=== PATIENT | male | born 1935 | race Caucasian/White ===

== ENCOUNTER 2016-03-23 14:38 | Emergency (ER) | payer BC ==
[~2016-03-23] VITALS: Ht 182.9 cm; Wt 95.5 kg
[~2016-03-23 14:38] MED LIST: ALFU10TA2 PO; ASPI-110 PO; ATOR10TA15 PO; BACT800T5 PO; FINA5TAB2 PO; OXYB15TA PO; WARF-21 PO
[2016-03-23 14:48] VITALS: BP 121/77; PULSE 83; RESP 16; TEMP 98.2; O2SAT 96
[2016-03-23] MEDS ORDERED: TETANUS/DIPHTHERIA TOXOID ADULT 0.5 ML VIAL IM ONE (15:15)
[2016-03-23] MEDS ORDERED: NEOMYCIN/POLYMYXIN/BACITRACIN OINT 15 GM TUBE TOPICAL ONE (15:15)
[2016-03-23] MEDS ORDERED: ULTR50TA5 PO (15:24)
--- NOTE | 2016-03-23 15:24 | PD ---
HPI . Facial laceration Chief Complaint: Fall Time Seen by Provider: 14:54 Travel History International Travel<30 days: No Contact w/Intl Traveler<30days: No Traveled to known affect area: No History of Present Illness HPI Patient presents for evaluation of injury sustained in a fall. He states that he tripped and fell. He denies loss of consciousness. He denies any signs or symptoms of a head injury. He is complaining with a cut on the left cheek and abrasions on the left elbow and both knees. He states that he is able to move all extremities without difficulty and he is able to walk without difficulty. Does not know the date of his last tetanus shot. 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) High Cholesterol: Yes Chemotherapy: No Chest Pain: No Congestive Heart Failure: No Diabetes: No Diminished Hearing: No Deep Vein Thrombosis: Yes Endocrine: No Gastrointestinal Disorders: Yes (DIVERTICULITIS, COLON RESECTION) GERD: No Genitourinary: No Hepatitis: No Hiatal Hernia: No Hypertension: Yes Immune Disorder: No Implanted Vascular Access Dvce: Yes Musculoskeletal: No Neurologic: No Psychiatric: No Reproductive: No Respiratory: No Radiation Therapy: No Ulcer: No Past Surgical History Abdominal Surgery: Yes (gallbladder removed, collectomy) Appendectomy: Yes Body Medical Devices: MESH IN ABD Cardiac Surgery: No Cholecystectomy: Yes Ear Surgery: No Endocrine Surgery: No Eye Surgery: No Genitourinary Surgery: No Gynecologic Surgery: No Oral Surgery: No Thoracic Surgery: No Tonsillectomy: Yes Other Surgery: Yes Social History Alcohol Use: No Tobacco Use: No (QUIT IN ) Substance Use: No Allergies-Medications (Allergen,Severity, Reaction): Coded Allergies: No Known Allergies (Verified , 03/23/16) Reported Meds & Prescriptions Reported Meds & Active Scripts Active Reported Bactrim DS (Sulfamethoxazole-Trimethoprim) 800-160 Mg Tab 1 Tab PO DAILY Aspirin 81 (Aspirin) 81 Mg Tabdr 81 Mg PO DAILY Atorvastatin (Atorvastatin Calcium) 10 Mg Tab 10 Mg PO HS Oxybutynin ER 24 HR (Oxybutynin Chloride) 15 Mg Tab 15 Mg PO DAILY Alfuzosin ER 24 HR 10 Mg Tab 5 Mg PO DAILY Finasteride 5 Mg Tab 5 Mg PO DAILY Do not crush. Warfarin 7.5 Mg Tab 7.5 Mg PO DAILY Review of Systems Except as stated in HPI: all other systems reviewed are Neg HENT: No: Headaches, Lightheadedness, Neck Pain Cardiovascular: No: Syncope Skin: Positive Other (abrasions and lacerations) Physical Exam Narrative GENERAL: This is a healthy-appearing 80-year-old man. SKIN: Warm and dry. Superficial abrasions on the left elbow and both knees. 2 small lacerations on the left cheek. HEAD: Contusion of the left eyebrow. Normocephalic. EYES: Pupils equal and round. ENT: No nasal bleeding or discharge. Mucous membranes pink and moist. NECK: Trachea midline. Neck is supple with full range of motion. CARDIOVASCULAR: Regular rate and rhythm. RESPIRATORY: No accessory muscle use. GASTROINTESTINAL: Abdomen soft, non-tender, nondistended. MUSCULOSKELETAL: No obvious deformities. No edema. He moves all 4 extremities equally and is able to bear weight. NEUROLOGICAL: Awake and alert. No obvious cranial nerve deficits. Motor grossly within normal limits. Normal speech. PSYCHIATRIC: Appropriate mood and affect; insight and judgment normal. Data Data Last Documented VS Vital Signs Date Time Temp Pulse Resp B/P Pulse Ox O2 Delivery O2 Flow Rate FiO2 03/23/16 14:48 98.2 83 16 121/77 96 Orders Tetanus/Diphtheria Tox Adult (Tetanus/Di (03/23/16 15:15) ^ Wound Care (03/23/16 15:01) Nfgfvxor-Utjsn-Iwebisjtxl Oint (Neospori (03/23/16 15:15) MDM Medical Decision Making Medical Screen Exam Complete: Yes Emergency Medical Condition: Yes Differential Diagnosis Differential diagnosis includes but is not limited to skin laceration, muscular laceration, tendon laceration, neurovascular laceration. Narrative Course Patient presents for treatment of wounds sustained in a fall. As no evidence of fracture. He has no evidence of head injury. Procedures Procedure Narrative LACERATION X 2 LOCATION: Left cheek LENGTH: 1 laceration was 0.5 cm long and the second laceration was 1 cm long NUMBER OF STITCHES/BRITTANY: 0 REPAIR: The wound was cleaned with sterile saline. The wound was closed using Dermabond. Patient tolerated the procedure well. Diagnosis Primary Impression: Laceration of left cheek Qualified Code: S01.412A - Laceration of left cheek, initial encounter Additional Impression: Multiple abrasions Additional Instructions: Keep the left cheek as clean and dry as possible. Do not use any antibiotic ointment on your cheek. Wash the abrasions on her elbow and knees twice daily with soap and water and then apply antibiotic ointment. Scripts Tramadol (Ultram)50 Mg Tab50 Mg PO Q4H PRN (PAIN) #12 TAB Ref 0 Prov:Maddy Murguia MD 03/23/16 Disposition: 01 DISCHARGE HOME Condition: Stable Maddy Murguia MD Mar 23, 2016 15:24
== END 2016-03-23 15:55 | disposition home or self-care (01) ==
LOC: PHED 14:38
DX: S01.412A Laceration without foreign body of left cheek and temporomandibular area, initial encounter (principal); S50.312A Abrasion of left elbow, initial encounter; I10 Essential (primary) hypertension; Z79.01 Long term (current) use of anticoagulants; E78.00 Pure hypercholesterolemia, unspecified; W01.0XXA Fall on same level from slipping, tripping and stumbling without subsequent striking against object, initial encounter; Y93.9 Activity, unspecified; Y92.9 Unspecified place or not applicable; Y99.9 Unspecified external cause status
CPT/HCPCS: 12011; 90471; 90714

== ENCOUNTER 2016-06-14 10:34 | Emergency (ER) | payer BC ==
[~2016-06-14] VITALS: Ht 182.9 cm; Wt 93.0 kg
[~2016-06-14 10:34] MED LIST changes: +ULTR50TA5 PO
[2016-06-14 10:45] VITALS: BP 121/78; PULSE 84; RESP 18; TEMP 98.7; O2SAT 96
[2016-06-14 10:57] VITALS: O2SAT 97
[2016-06-14] MEDS ORDERED: SODIUM CHLORIDE 0.9% FLUSH 10 ML FLUSH IVF PRN (11:00)
--- NOTE | 2016-06-14 11:02 | PD ---
HPI Chief Complaint: syncope Time Seen by Provider: 10:44 Travel History International Travel<30 days: No Contact w/Intl Traveler<30days: No Traveled to known affect area: No History of Present Illness HPI I this patient was having problems with lightheadedness this morning. He did not have any chest pain or palpitations. No headaches. He went to a meeting and during the meeting the lightheadedness worsened and he had a syncopal episode. He passed out and fell over and struck the left brow. He does complain of headache. No neck symptoms. Headache is mild and not a distracting injury. He does take Coumadin however. Patient has a pacemaker placed. He's never had a problem with syncope in the last 15 years. No alleviating factors. Duration of symptoms is one day. Symptoms severity was moderate. He is not lightheaded now 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) High Cholesterol: Yes Chemotherapy: No Chest Pain: No Congestive Heart Failure: No Diabetes: No Diminished Hearing: No Deep Vein Thrombosis: Yes Endocrine: No Gastrointestinal Disorders: Yes (DIVERTICULITIS, COLON RESECTION) GERD: No Genitourinary: No Hepatitis: No Hiatal Hernia: No Hypertension: Yes Immune Disorder: No Implanted Vascular Access Dvce: No Musculoskeletal: No Neurologic: No Psychiatric: No Reproductive: No Respiratory: No Radiation Therapy: No Ulcer: No Past Surgical History Abdominal Surgery: Yes (gallbladder removed, collectomy) Appendectomy: Yes Body Medical Devices: MESH IN ABD Cardiac Surgery: No Cholecystectomy: Yes Ear Surgery: No Endocrine Surgery: No Eye Surgery: No Genitourinary Surgery: No Gynecologic Surgery: No Neurologic Surgery: No Oral Surgery: No Thoracic Surgery: No Tonsillectomy: Yes Other Surgery: Yes Social History Alcohol Use: No Tobacco Use: No (QUIT IN ) Substance Use: No Allergies-Medications (Allergen,Severity, Reaction): Coded Allergies: No Known Allergies (Verified , 03/23/16) Reported Meds & Prescriptions Reported Meds & Active Scripts Active Ultram (Tramadol HCl) 50 Mg Tab 50 Mg PO Q4H PRN Reported Bactrim DS (Sulfamethoxazole-Trimethoprim) 800-160 Mg Tab 1 Tab PO DAILY Aspirin 81 (Aspirin) 81 Mg Tabdr 81 Mg PO DAILY Atorvastatin (Atorvastatin Calcium) 10 Mg Tab 10 Mg PO HS Oxybutynin ER 24 HR (Oxybutynin Chloride) 15 Mg Tab 15 Mg PO DAILY Alfuzosin ER 24 HR 10 Mg Tab 5 Mg PO DAILY Finasteride 5 Mg Tab 5 Mg PO DAILY Do not crush. Warfarin 7.5 Mg Tab 7.5 Mg PO DAILY Review of Systems General / Constitutional: No: Fever Eyes: No: Visual changes HENT: Positive: Headaches, Lightheadedness Cardiovascular: Positive: Syncope, No: Chest Pain or Discomfort Respiratory: No: Shortness of Breath Gastrointestinal: No: Abdominal Pain Genitourinary: No: Dysuria Musculoskeletal: No: Pain Skin: No Rash Neurologic: Positive: Dizziness, Syncope, Headache, No: Weakness Psychiatric: No: Depression Endocrine: No: Polydipsia Hematologic/Lymphatic: No: Easy Bruising Physical Exam Narrative GENERAL: Well-nourished, well-developed patient in no apparent distress. SKIN: Focused skin assessment reveals no rash and nodules. Skin is Warm and dry. HEAD: Has a 1.5 cm brow laceration on the left. Normocephalic. EYES: Pupils equal and round. No scleral icterus. No injection or drainage. ENT: No nasal bleeding or discharge. Mucous membranes pink and moist. NECK: Trachea midline. No JVD. No midline tenderness CARDIOVASCULAR: Regular rate and rhythm. No murmur appreciated. RESPIRATORY: No accessory muscle use. Clear to auscultation. Breath sounds equal bilaterally. GASTROINTESTINAL: Abdomen soft, non-tender, nondistended. Hepatic and splenic margins not palpable. MUSCULOSKELETAL: No obvious deformities. No clubbing. No cyanosis. No edema. NEUROLOGICAL: Awake and alert. No obvious cranial nerve deficits. Motor grossly within normal limits. Normal speech. PSYCHIATRIC: Appropriate mood and affect; insight and judgment normal. Data Data Last Documented VS Vital Signs Date Time Temp Pulse Resp B/P Pulse Ox O2 Delivery O2 Flow Rate FiO2 06/14/16 10:57 97 Room Air 06/14/16 10:57 86 18 06/14/16 10:45 98.7 121/78 Orders Electrocardiogram (06/14/16 10:52) Basic Metabolic Panel (Bmp) (06/14/16 10:52) Complete Blood Count With Diff (06/14/16 10:52) Prothrombin Time / Inr (Pt) (06/14/16 10:52) Ct Brain W/O Iv Contrast(Rout) (06/14/16 10:52) Ecg Monitoring (06/14/16 10:52) Iv Access Insert/Monitor (06/14/16 10:52) Oximetry (06/14/16 10:52) Sodium Chloride 0.9% Flush (Ns Flush) (06/14/16 11:00) Lidocai-Epi 1%-1:100,000 Inj (Xylocaine- (06/14/16 11:30) Lidocai-Epi 1%-1:100,000 Inj (Xylocaine- (06/14/16 11:30) Labs Laboratory Tests Test 06/14/16 11:00 White Blood Count 7.8 TH/MM3 Red Blood Count 4.11 MIL/MM3 Hemoglobin 12.6 GM/DL Hematocrit 37.1 % Mean Corpuscular Volume 90.2 FL Mean Corpuscular Hemoglobin 30.6 PG Mean Corpuscular Hemoglobin 33.9 % Concent Red Cell Distribution Width 15.8 % Platelet Count 153 TH/MM3 Mean Platelet Volume 9.3 FL Neutrophils (%) (Auto) 77.7 % Lymphocytes (%) (Auto) 12.5 % Monocytes (%) (Auto) 8.2 % Eosinophils (%) (Auto) 0.8 % Basophils (%) (Auto) 0.8 % Neutrophils # (Auto) 6.1 TH/MM3 Lymphocytes # (Auto) 1.0 TH/MM3 Monocytes # (Auto) 0.6 TH/MM3 Eosinophils # (Auto) 0.1 TH/MM3 Basophils # (Auto) 0.1 TH/MM3 CBC Comment DIFF FINAL Differential Comment Prothrombin Time 29.6 SEC Prothromb Time International 2.6 RATIO Ratio Sodium Level 136 MEQ/L Potassium Level 4.4 MEQ/L Chloride Level 101 MEQ/L Carbon Dioxide Level 25.7 MEQ/L Anion Gap 9 MEQ/L Blood Urea Nitrogen 25 MG/DL Creatinine 2.28 MG/DL Estimat Glomerular Filtration 28 ML/MIN Rate Random Glucose 88 MG/DL Calcium Level 9.0 MG/DL MDM Medical Decision Making Medical Screen Exam Complete: Yes Emergency Medical Condition: Yes Medical Record Reviewed: Yes Differential Diagnosis Cardiac arrhythmia, pacemaker failure, vasovagal episode Narrative Course I have reviewed the patient's electronic medical record. Patient was seen in the ER for laceration March 2016 IV placed CBC is normal Metabolic profile shows chronic renal insufficiency with creatinine of 2.2 INR on Coumadin is 2.[address] done given his head injury with headache on Coumadin. Brain CT is negative for acute process He is neurologically intact C-spine cleared clinically I reviewed his EKG which shows a paced rhythm at 80 without ectopy Extended cardiac monitoring shows paced rhythm at 80 without ectopy [employer] has been called in to interrogate the pacer to evaluate for cardiac arrhythmia or pacer failure. At this time ER workup does not reveal any cause of syncope. Awaiting [employer] rep to interrogate the pacer. I reviewed in detail with the [employer] rep. Pacer is working fine and there is no dangerous arrhythmias noted. Patient's been here for several hours and is feeling fine. He's been up and walking to the bathroom and back without lightheadedness. He wants to go home now and is stable for outpatient follow-up. Procedures Procedure Narrative LACERATION LOCATION: Left brow LENGTH: 1.5 cm NUMBER OF STITCHES/BRITTANY: 3 REPAIR: The area of the laceration was prepped with Betadine and sterilely draped. The laceration was infiltrated with 3 cc of lidocaine with 1% epinephrine. The wound was copiously irrigated and explored without evidence of foreign body, tendon injury or neurovascular injury. The wound was closed using 4 -0 Ethilon. This was a single layer repair. A sterile dressing was applied. The patient was advised to keep the dressing clean and dry. Patient tolerated the procedure well. Diagnosis Primary Impression: Syncope Qualified Code: R55 - Syncope, unspecified syncope type Additional Impressions: Head injury due to trauma Qualified Code: S09.90XA - Head injury due to trauma, initial encounter Laceration of brow without complication Qualified Code: S01.81XA - Laceration of brow without complication, initial encounter Segundo Han MD Jun 14, 2016 11:02
[2016-06-14 11:14] LABS: AUTOMATED NEUTROPHIL # 6.1 TH/MM3 (1.8-7.7); BASOPHIL # 0.1 TH/MM3 (0-0.2); BASOPHIL % 0.8 % (0.0-2.0); EOSINOPHIL # 0.1 TH/MM3 (0-0.4); EOSINOPHIL % 0.8 % (0.0-4.0); HEMATOCRIT 37.1 % (39.0-51.0); HEMO FLAGS DIFF FINAL; LYMPH % 12.5 % (9.0-44.0); MEAN CELL VOLUME 90.2 FL (80.0-100.0); MEAN CORPUSCULAR HEMOGLOBIN 30.6 PG (27.0-34.0); MEAN CORPUSCULAR HGB CONC 33.9 % (32.0-36.0); MONO % 8.2 % (0.0-8.0); NEUT % 77.7 % (16.0-70.0); PLATELET COUNT 153 TH/MM3 (150-450); RED BLOOD COUNT 4.11 MIL/MM3 (4.50-5.90); RED CELL DISTRIBUTION WIDTH 15.8 % (11.6-17.2); WHITE BLOOD COUNT 7.8 TH/MM3 (4.0-11.0)
[2016-06-14 11:22] LABS: INTERNATIONAL NORMALIZED RATIO 2.6 RATIO; PROTHROMBIN TIME - PATIENT 29.6 SEC (9.8-11.6)
[2016-06-14] MEDS ORDERED: LIDOCAINE 1%/EPINEPHrine 1:100,000 SOLN 20 ML VIAL INFIL ONE ×2 (11:30)
[2016-06-14 11:34] LABS: BICARBONATE 25.7 MEQ/L (21.0-32.0); POTASSIUM 4.4 MEQ/L (3.5-5.1)
[2016-06-14 12:47] VITALS: BP 134/69; PULSE 81; RESP 18; O2SAT 98
--- NOTE | 2016-06-14 13:03 | RADRPT ---
EXAM DATE/TIME: 06/14/2016 12:22 [facility] COMPARISON: CT BRAIN W/O CONTRAST, February 12, 2015, 0:26. INDICATIONS : Syncopal episode today with loss of consciousness, laceration to left forehead. RADIATION DOSE: 51.27 CTDIvol (mGy) MEDICAL HISTORY : Hypertension. Cardiovascular disease SURGICAL HISTORY : Appendectomy. ENCOUNTER: Initial ACUITY: 1 day PAIN SCALE: 3/10 LOCATION: Left forehead TECHNIQUE: Multiple contiguous axial images were obtained of the head. Using automated exposure control and adj ustment of the mA and/or kV according to patient size, radiation dose was kept as low as reasonably a chievable to obtain optimal diagnostic quality images. FINDINGS: CEREBRUM: The ventricles are normal for age. No evidence of midline shift, mass lesion, hemorrhage or acute in farction. No extra-axial fluid collections are seen. POSTERIOR FOSSA: The cerebellum and brainstem are intact. The 4th ventricle is midline. The cerebellopontine angle i s unremarkable. EXTRACRANIAL: The visualized portion of the orbits is intact. SKULL: The calvaria is intact. No evidence of skull fracture. CONCLUSION: Negative for acute process. Jose F Hall MD FACR on June 14, 2016 at 12:57 Board Certified Radiologist. This report was verified electronically.
[2016-06-14 14:46] VITALS: BP 136/72; PULSE 68; RESP 18; O2SAT 98
--- NOTE | 2016-06-15 10:41 | EKG ---
Date Performed: 06/14/2016 Time Performed: 11:17:34 PTAGE: 80 years EKG: ELECTRONIC ATRIAL PACEMAKER ELECTRONIC VENTRICULAR PACEMAKER ABNORMAL RHYTHM ECG Compared t o prior tracing no significant change PREVIOUS TRACING : 01/23/2016 04.24 DOCTOR: Clemencia Aranda Interpretating Date/Time 06/15/2016 10:35:24
== END 2016-06-14 15:38 | disposition home or self-care (01) ==
LOC: NEPA 10:34
DX: R55 Syncope and collapse (principal); S09.90XA Unspecified injury of head, initial encounter; S01.81XA Laceration without foreign body of other part of head, initial encounter; R94.31 Abnormal electrocardiogram [ECG] [EKG]; I10 Essential (primary) hypertension; W01.10XA Fall on same level from slipping, tripping and stumbling with subsequent striking against unspecified object, initial encounter; Z79.01 Long term (current) use of anticoagulants
CPT/HCPCS: 12011; 70450; 80048; 85025; 85610; 93005

== ENCOUNTER 2017-02-20 03:56 | Observation (INO) | payer BC ==
[~2017-02-20] VITALS: Ht 182.9 cm; Wt 93.3 kg
[2017-02-20] VITALS (15 sets, daily range): BP systolic 98–148; BP diastolic 55–78; PULSE 59–94; RESP 16–20; TEMP 97.8–99; O2SAT 95–97
[~2017-02-20 03:56] MED LIST changes: -ASPI-110 PO; +ASPI1TAB57 PO; +TRAM50 PO; -ULTR50TA5 PO
[2017-02-20] MEDS ORDERED: SODIUM CHLORIDE 0.9% FLUSH 10 ML FLUSH IVF PRN (04:15)
--- NOTE | 2017-02-20 04:23 | PD ---
HPI Chief Complaint: Neuro Symptoms/ Deficits Time Seen by Provider: 04:15 Travel History International Travel<30 days: No Contact w/Intl Traveler<30days: No Traveled to known affect area: No History of Present Illness HPI 81-year-old male presents to the emergency department by EMS transport from home for evaluation of generalized weakness and mild confusion that was witnessed by his just prior to arrival to the emergency department. Patient has past history significant for pacemaker placement for heart block, warfarin anticoagulation for DVT, hypertension, dyslipidemia, arthritis and recent diagnosis of urinary tract infection on oral antibiotic. Patient reports that Tuesday he had his pacemaker interrogated and it was fine. Patient states she is not sure why he is here at the hospital. Patient's is reportedly en route to the hospital. Patient here denies headache confusion visual disturbance difficulty with speech difficulty swallowing upper or lower extremity numbness tingling or weakness denies balance disturbance; patient also denies chest pain palpitations sweats nausea vomiting abdominal pain back pain diarrhea urinary symptoms joint pain or swelling. [employer] report indicates patient was hypotensive upon their arrival with a systolic pressure of 80-88 mmHg patient was administered a bolus of normal saline with blood pressure into normal range at time of delivery to the hospital. Patient's blood sugar was 122. PFSH Past Medical History Narrative Medical Hypertension dyslipidemia DVT TIA arthritis heart block gi bleed; Cholecystectomy appendectomy right hemicolectomy pacemaker placement; no tobacco use; nursing notes reviewed Hx Anticoagulant Therapy: Yes (COUMADIN, ASPIRIN ) Arthritis: Yes (ARMS) Autoimmune Disease: No Blood Disorders: No Cancer: No Cardiovascular Problems: Yes (pacemaker 01/2016) High Cholesterol: Yes Chemotherapy: No Chest Pain: No Congestive Heart Failure: No Diabetes: No Diminished Hearing: No Deep Vein Thrombosis: Yes Endocrine: No Gastrointestinal Disorders: Yes (DIVERTICULITIS, COLON RESECTION) GERD: No Genitourinary: No Hepatitis: No Hiatal Hernia: No Hypertension: Yes Immune Disorder: No Implanted Vascular Access Dvce: No Musculoskeletal: No Neurologic: No Psychiatric: No Reproductive: No Respiratory: No Radiation Therapy: No Ulcer: No Past Surgical History Abdominal Surgery: Yes (gallbladder removed, collectomy) Appendectomy: Yes Body Medical Devices: MESH IN ABD Cardiac Surgery: No Cholecystectomy: Yes Ear Surgery: No Endocrine Surgery: No Eye Surgery: No Genitourinary Surgery: Yes (TURP) Gynecologic Surgery: No Neurologic Surgery: No Oral Surgery: No Thoracic Surgery: No Tonsillectomy: Yes Other Surgery: Yes Social History Alcohol Use: No Tobacco Use: No (QUIT IN ) Substance Use: No Allergies-Medications (Allergen,Severity, Reaction): Coded Allergies: No Known Allergies (Verified , 03/23/16) Reported Meds & Prescriptions Reported Meds & Active Scripts Active Ultram (Tramadol HCl) 50 Mg Tab 50 Mg PO Q4H PRN Reported [antiobiotic] PO BID Aspirin 81 (Aspirin) 81 Mg Tabdr 81 Mg PO DAILY Atorvastatin (Atorvastatin Calcium) 10 Mg Tab 10 Mg PO HS Oxybutynin ER 24 HR (Oxybutynin Chloride) 15 Mg Tab 15 Mg PO DAILY Alfuzosin ER 24 HR 10 Mg Tab 5 Mg PO DAILY Finasteride 5 Mg Tab 5 Mg PO DAILY Do not crush. Warfarin 7.5 Mg Tab 7.5 Mg PO DAILY Review of Systems Except as stated in HPI: all other systems reviewed are Neg General / Constitutional: No: Fever Eyes: No: Visual changes HENT: No: Headaches, Lightheadedness Cardiovascular: No: Chest Pain or Discomfort, Palpitations, Syncope Respiratory: No: Shortness of Breath Gastrointestinal: No: Nausea, Vomiting, Abdominal Pain Genitourinary: No: Dysuria, Flank Pain Musculoskeletal: No: Myalgias, Arthralgias Skin: No Rash Neurologic: Positive: Weakness, No: Syncope, Change in Mentation, Paresthesia Psychiatric: No: Anxiety Hematologic/Lymphatic: No: Easy Bruising Physical Exam Narrative GENERAL: Well-developed well-nourished male in no acute distress no respiratory distress; GCS 15 SKIN: Warm and dry. HEAD: Atraumatic. Normocephalic. EYES: Pupils equal and round. No scleral icterus. No injection or drainage. ENT: No nasal bleeding or discharge. Mucous membranes pink and moist. NECK: Trachea midline. No JVD. CARDIOVASCULAR: Regular rate and rhythm. RESPIRATORY: No accessory muscle use. Clear to auscultation. Breath sounds equal bilaterally. GASTROINTESTINAL: Abdomen soft, non-tender, nondistended. Hepatic and splenic margins not palpable. MUSCULOSKELETAL: Extremities without clubbing, cyanosis, or edema. No obvious deformities. NEUROLOGICAL: Awake and alert. GCS 15. No obvious cranial nerve deficits. Motor grossly within normal limits. Five out of 5 muscle strength in the arms and legs. No pronator drift. No limb ataxia. Normal speech. PSYCHIATRIC: Appropriate mood and affect; insight and judgment normal. Data Data Last Documented VS Vital Signs Date Time Temp Pulse Resp B/P (MAP) Pulse Ox O2 Delivery O2 Flow Rate FiO2 02/20/17 05:58 59 20 106/64 (78) 95 Room Air 02/20/17 04:04 99.0 Orders Orders Electrocardiogram (02/20/17 04:15) Complete Blood Count With Diff (02/20/17 04:15) Comprehensive Metabolic Panel (02/20/17 04:15) Magnesium (Mg) (02/20/17 04:15) Ckmb (Isoenzyme) Profile (02/20/17 04:15) Troponin I (02/20/17 04:15) Prothrombin Time / Inr (Pt) (02/20/17 04:15) Urinalysis - C+S If Indicated (02/20/17 04:15) Chest, Single Ap (02/20/17 04:15) Ct Brain W/O Iv Contrast(Rout) (02/20/17 04:15) Blood Glucose (02/20/17 04:15) Ecg Monitoring (02/20/17 04:15) Iv Access Insert/Monitor (02/20/17 04:15) Oximetry (02/20/17 04:15) Sodium Chloride 0.9% Flush (Ns Flush) (02/20/17 04:15) Sodium Chlor 0.9% 1000 Ml Inj (Ns 1000 M (02/20/17 04:30) Blood Culture (02/20/17 04:25) Lactic Acid (02/20/17 04:25) CKMB (02/20/17 04:23) CKMB% (02/20/17 04:23) Place In Observation (02/20/17 ) Vital Signs (Adult) Q4H (02/20/17 06:41) Bedside Glucose TATYANA.CSUGAR (02/20/17 06:41) Diet Heart Healthy (02/20/17 Breakfast) Sodium Chlor 0.9% 1000 Ml Inj (Ns 1000 M (02/20/17 06:41) Sodium Chloride 0.9% Flush (Ns Flush) (02/20/17 06:45) Sodium Chloride 0.9% Flush (Ns Flush) (02/20/17 09:00) Acetaminophen (Tylenol) (02/20/17 06:45) Ondansetron Inj (Zofran Inj) (02/20/17 06:45) Basic Metabolic Panel (Bmp) (02/21/17 06:00) Complete Blood Count With Diff (02/21/17 06:00) Case Management Consult (02/20/17 06:41) Heparin Inj (Heparin Inj) (02/20/17 06:45) Naloxone Inj (Narcan Inj) (02/20/17 06:45) Docusate Sodium-Senna (Agnieszka-Colace) (02/20/17 09:00) Magnesium Hydroxide Liq (Milk Of Magnesi (02/20/17 06:45) Sennosides (Senokot) (02/20/17 06:45) Bisacodyl Supp (Dulcolax Supp) (02/20/17 06:45) Lactulose Liq (Lactulose Liq) (02/20/17 06:45) Labs Laboratory Tests Test 02/20/17 04:23 02/20/17 04:57 02/20/17 06:17 White Blood Count 15.7 TH/MM3 Red Blood Count 4.37 MIL/MM3 Hemoglobin 14.4 GM/DL Hematocrit 42.2 % Mean Corpuscular Volume 96.5 FL Mean Corpuscular Hemoglobin 32.9 PG Mean Corpuscular Hemoglobin Concent 34.1 % Red Cell Distribution Width 15.4 % Platelet Count 125 TH/MM3 Mean Platelet Volume 9.9 FL Neutrophils (%) (Auto) 91.8 % Lymphocytes (%) (Auto) 1.9 % Monocytes (%) (Auto) 5.6 % Eosinophils (%) (Auto) 0.5 % Basophils (%) (Auto) 0.2 % Neutrophils # (Auto) 14.5 TH/MM3 Lymphocytes # (Auto) 0.3 TH/MM3 Monocytes # (Auto) 0.9 TH/MM3 Eosinophils # (Auto) 0.1 TH/MM3 Basophils # (Auto) 0.0 TH/MM3 CBC Comment AUTO DIFF Differential Comment AUTO DIFF CONFIRMED Platelet Estimate LOW Platelet Morphology Comment CLUMPED Prothrombin Time 22.9 SEC Prothromb Time International Ratio 2.3 RATIO Blood Urea Nitrogen 24 MG/DL Creatinine 1.56 MG/DL Random Glucose 111 MG/DL Total Protein 7.3 GM/DL Albumin 3.0 GM/DL Calcium Level 8.2 MG/DL Magnesium Level 1.8 MG/DL Alkaline Phosphatase 66 U/L Aspartate Amino Transf (AST/SGOT) 41 U/L Alanine Aminotransferase (ALT/SGPT) 26 U/L Total Bilirubin 0.9 MG/DL Sodium Level 135 MEQ/L Potassium Level 4.5 MEQ/L Chloride Level 102 MEQ/L Carbon Dioxide Level 24.0 MEQ/L Anion Gap 9 MEQ/L Estimat Glomerular Filtration Rate 43 ML/MIN Total Creatine Kinase 188 U/L Creatine Kinase MB 4.5 NG/ML Troponin I 0.03 NG/ML Lactic Acid Level 2.0 mmol/L [facility] Medical Decision Making Medical Screen Exam Complete: Yes Emergency Medical Condition: Yes Medical Record Reviewed: Yes Interpretation(s) EKG: Ventricular paced rhythm rate 60 CT brain w/o: FINDINGS: No fractures are seen. There is mild atrophy again noted. No hemorrhage, infarct , or mass. CONCLUSION: No acute disease. Arvin Foster MD on February 20, 2017 at 5:32 Board Certified Radiologist. This report was verified electronically. CXR: FINDINGS: A single view of the chest demonstrates the lungs to be symmetrically aerated without evidence of mass, infiltrate or effusion. The cardiomediastinal contours are unremarkable. Osseous structures are intact. CONCLUSION: No acute disease. Arvin Foster MD on February 20, 2017 at 5:24 Board Certified Radiologist. This report was verified electronically. Lactic: 2.0, not elevated INR: 2.3, therapeutic cbc: leukocytosis with left shift and thrombocytopenia cmp: Renal insufficiency trop I: 0.03, wnl ck: 188, wnl; mb%: 2.4%, not elevated ua: Differential Diagnosis Generalized weakness, near-syncope, arrhythmia, sepsis, hypotension, pacemaker malfunction, electrolyte disturbance, coagulopathy, anemia, ACS, TIA, CVA Narrative Course Well-developed well-nourished pleasant male in no acute distress no respiratory distress placed on monitoring analyst with continuous pulse oximetry specimens collected and sent for resulting EKG ordered along with imaging studies At 4:30 at bedside reports that she last saw him normal amounts 6:30 or 7 PM on Tuesday evening before he went to bed. Patient typically goes to bed early. states subsequently she went to bed and then she was noticing sometimes she thinks around 1 AM that he seemed to be sitting on the side of the bed and appeared to be agitated but she was sleeping so she did not really pay attention and then she was awakened around 3 AM with him still awake and she noticed that his side of the bed was wet aware he must have urinated on the bed into his depends therefore she decided to get him up to give him a shower and noticed that he was very weak and had to use her as a support to get to the shower and once he was in the shower became more weak states that she pretty minute chairs been no fall. reports of his no injury related to this episode of weakness this morning. states that he has been somewhat agile bowl and weak over the past few days and recently was started on a new antibiotic which replaced the Bactrim antibiotic that he had been on. confirms the patient on Tuesday did have his pacemaker interrogated. states here in the emergency department he seems much improved and back to his baseline. reports that she did not notice any facial droop or slurring of speech or focal weakness of the upper extremity or lower extremity and that he always has a slow gait. At home he appeared somewhat confused. Mentation has improved after 2 L of normal saline IV patient still remains with generalized weakness and blood pressure is increased to 10 7 mmHg systolic pressure. Patient does have leukocytosis with left shift renal insufficiency and within normal range CK and troponin I with therapeutic range INR; urinalysis remains pending; chest x-ray does not show lobar infiltrate effusion or heart failure cardiac silhouette is enlarged. CT brain noncontrast reveals no acute abnormality. Patient remains resting supine with O2 saturations of 96- 97% without orthopnea for complaint of shortness of breath. It is unclear as to what caused the patient to have a hypotensive episode which is most likely the explanation for his confusion; patient require further evaluation and investigation etiology of episode of hypotension with generalized weakness therefore patient's case discussed with on-call [facility] MD Dr. Hung who has graciously agreed to accept patient for observation Sepsis Criteria SIRS Criteria (2 or more): WBC > 63880, < 4000 or > 10% bands Diagnosis Primary Impression: Generalized weakness Additional Impression: Hypotension Mae Ford MD Feb 20, 2017 04:23
[2017-02-20] MEDS ORDERED: SODIUM CHLOR 0.9% 1000 ML INJ 1,000 ML IV ONE (04:30)
[2017-02-20 05:19] LABS: AUTOMATED NEUTROPHIL # 14.5 TH/MM3 (1.8-7.7); BASOPHIL % 0.2 % (0.0-2.0); EOSINOPHIL # 0.1 TH/MM3 (0-0.4); EOSINOPHIL % 0.5 % (0.0-4.0); HEMATOCRIT 42.2 % (39.0-51.0); LYMPH % 1.9 % (9.0-44.0); LYMPHOCYTE # 0.3 TH/MM3 (1.0-4.8); MEAN CELL VOLUME 96.5 FL (80.0-100.0); MEAN CORPUSCULAR HEMOGLOBIN 32.9 PG (27.0-34.0); MEAN CORPUSCULAR HGB CONC 34.1 % (32.0-36.0); MONO % 5.6 % (0.0-8.0); NEUT % 91.8 % (16.0-70.0); PLATELET COUNT 125 TH/MM3 (150-450); RED BLOOD COUNT 4.37 MIL/MM3 (4.50-5.90); RED CELL DISTRIBUTION WIDTH 15.4 % (11.6-17.2); WHITE BLOOD COUNT 15.7 TH/MM3 (4.0-11.0)
[2017-02-20 05:23] LABS: HEMO FLAGS AUTO DIFF
--- NOTE | 2017-02-20 05:25 | RADRPT ---
EXAM DATE/TIME: 02/20/2017 04:26 [facility] COMPARISON: CHEST SINGLE AP, January 22, 2016, 17:46. INDICATIONS : Palpitations. MEDICAL HISTORY : Hypertension. Cardiovascular disease. Deep venous thrombosis. SURGICAL HISTORY : Appendectomy. Pacemaker. Cholecystectomy. Colon resection. ENCOUNTER: Initial ACUITY: 1 day PAIN SCORE: 0/10 LOCATION: Bilateral chest FINDINGS: A single view of the chest demonstrates the lungs to be symmetrically aerated without evidence of mas s, infiltrate or effusion. The cardiomediastinal contours are unremarkable. Osseous structures are intact. CONCLUSION: No acute disease. Arvin Foster MD on February 20, 2017 at 5:24 Board Certified Radiologist. This report was verified electronically.
--- NOTE | 2017-02-20 05:34 | RADRPT ---
EXAM DATE/TIME: 02/20/2017 04:54 [facility] COMPARISON: CT BRAIN W/O CONTRAST, June 14, 2016, 12:22. INDICATIONS : Altered mental status. RADIATION DOSE: 56.35 CTDIvol (mGy) MEDICAL HISTORY : Cardiovascular disease. Hypertension. Deep venous thrombosis. SURGICAL HISTORY : Pacemaker. Cholecystectomy. ENCOUNTER: Initial ACUITY: 1 day PAIN SCALE: 0/10 LOCATION: neck TECHNIQUE: Multiple contiguous axial images were obtained of the head. Using automated exposure control and adj ustment of the mA and/or kV according to patient size, radiation dose was kept as low as reasonably a chievable to obtain optimal diagnostic quality images. DICOM format image data is available electro nically for review and comparison. FINDINGS: No fractures are seen. There is mild atrophy again noted. No hemorrhage, infarct, or mass. CONCLUSION: No acute disease. Arvin Foster MD on February 20, 2017 at 5:32 Board Certified Radiologist. This report was verified electronically.
[2017-02-20 05:35] LABS: INTERNATIONAL NORMALIZED RATIO 2.3 RATIO; PROTHROMBIN TIME - PATIENT 22.9 SEC (9.8-11.6)
[2017-02-20 05:54] LABS: ANION GAP 9 MEQ/L (5-15); AST (GOT) 41 U/L (15-37); BLOOD UREA NITROGEN 24 MG/DL (7-18); CHLORIDE 102 MEQ/L (98-107); GLOMERULAR FILTRATION RATE 43 ML/MIN (>89); MAGNESIUM 1.8 MG/DL (1.5-2.5); POTASSIUM 4.5 MEQ/L (3.5-5.1); SODIUM (NA) 135 MEQ/L (136-145)
[2017-02-20 06:03] LABS: ALKALINE PHOSPHATASE 66 U/L (45-117); ALT (GPT) 26 U/L (12-78); CREATINE KINASE 188 U/L (39-308); TOTAL BILIRUBIN ADULT 0.9 MG/DL (0.2-1.0)
[2017-02-20] MEDS ORDERED: antiobiotic PO (06:03)
[2017-02-20 06:13] LABS: PLATELET ESTIMATE SMEAR LOW (NORMAL); PLATELET MORPHOLOGY CLUMPED (NORMAL); SCAN/DIFF AUTO DIFF CONFIRMED
[2017-02-20 06:15] LABS: CKMB 4.5 NG/ML (0.5-3.6)
[2017-02-20] MEDS ORDERED: LACTULOSE SYRUP 20 GM/30 ML CUP PO PRN (06:45)
[2017-02-20] MEDS ORDERED: SENNOSIDES 8.6 MG TAB PO PRN (06:45)
[2017-02-20] MEDS ORDERED: ONDANSETRON HCL 4 MG/2 ML VIAL IVP PRN (06:45)
[2017-02-20] MEDS ORDERED: HEPARIN SODIUM - SQ 10,000 UNITS/ML VIAL SQ SCH (06:45)
[2017-02-20] MEDS ORDERED: BISACODYL 10 MG SUPP RECTAL PRN (06:45)
[2017-02-20] MEDS ORDERED: ACETAMINOPHEN 325 MG TAB PO PRN (06:45)
[2017-02-20] MEDS ORDERED: SODIUM CHLORIDE 0.9% FLUSH 10 ML FLUSH IV FLUSH PRN (06:45)
[2017-02-20] MEDS ORDERED: MAGNESIUM HYDROXIDE SUSP 30 ML CUP PO PRN (06:45)
[2017-02-20] MEDS ORDERED: NALOXONE HCL 0.4 MG/ML AMP IV PUSH PRN (06:45)
[2017-02-20 07:04] LABS: BLOOD, URINE NEG (NEG); COMMENT (UR) CULT NOT INDICATED; CULTURE IF INDICATED CULT NOT INDICATED; GLUCOSE,URINE NEG (NEG); KETONE, URINE NEG (NEG); MUCUS URINE FEW /lpf (OCC); NITRITE,URINE NEG (NEG); PH, URINE 5.5 (5.0-8.5); SQUAMOUS EPITHELIAL CELL URINE <1 /hpf (0-5); URINE COLOR YELLOW (YELLW/STRAW)
[2017-02-20] MEDS ORDERED: cefTRIAXone INJ 1,000 MG in SODIUM CHLORIDE 0.9% INJ 100 ML IV ONE (07:15)
[2017-02-20] MEDS: SODIUM CHLOR 0.9% 1000 ML INJ 1,000 ML IV SCH ×3 (07:42→20:22)
[2017-02-20] MEDS: DOCUSATE SODIUM 50 MG/SENNA 8.6 MG TAB PO SCH ×2 (08:39→20:22)
[2017-02-20] MEDS: SODIUM CHLORIDE 0.9% FLUSH 10 ML FLUSH IV FLUSH SCH ×2 (08:39→20:22)
--- NOTE | 2017-02-20 13:24 | EKG ---
Date Performed: 02/20/2017 Time Performed: 04:44:06 PTAGE: 81 years EKG: ELECTRONIC VENTRICULAR PACEMAKER ABNORMAL RHYTHM ECG PREVIOUS TRACING : 06/14/2016 11.17 Since prior tracing, pacing is now ventricular with no atri al spikes seen. Underlying rhythm appears to be atrial fibrillation. DOCTOR: Robert Quinonez Interpretating Date/Time 02/20/2017 13:22:45
--- NOTE | 2017-02-20 15:52 | HHI.HP ---
[facility] Richard Velazquez MD Admission Diagnosis generalized weakness w/ hypotension Diagnoses: Chief Complaint: Confusion Travel History International Travel<30 Days: No Contact w/Intl Traveler <30 Da: No Traveled to Known Affected Are: No History of Present Illness The patient is an 81-year-old male with a past medical history of DVT, BPH and diverticular disease who is presenting to the hospital with altered mental status and weakness. The patient's was at the bedside and assisted with the history as the patient was somewhat confused. The patient has been urinating a lot all week and went to the urologist a few days ago where he was started on nitrofurantoin. At around 2:30 this morning the patient was urinating a lot and was found to not be able to get up and was disoriented. The patient's called 911 because she thought he might be having a stroke. The patient is currently still a little confused. Patient's states he has had several episodes like this, starting 5 years ago. She also mentions that he has a hearing problem and balance issues. The patient denies any pain or discomfort. He is breathing comfortably. Review of Systems ROS Limitations: Clinical Condition, Poor Historian Except as stated in HPI: all other systems reviewed are Neg Past Family Social History Past Medical History Hypertension Dyslipidemia DVT TIA OA Complete heart block requiring pacemaker placement GI bleed Diverticular disease requiring hemicolectomy BPH status post TURP Chronic kidney disease Urethral stricture Venous insufficiency Past Surgical History Abdominal hernia repair Appendectomy Cholecystectomy Allergies: Coded Allergies: No Known Allergies (Verified , 03/23/16) Active Ordered Medications Current Medications Medications (Trade) Dose Ordered Sig/Benito Route Start Time Stop Time Status Last Admin Sodium Chloride 1,000 ml @ 125 mls/hr Q8H IV 02/20/17 06:41 02/20/17 07:42 (NS Flush) 2 ml UNSCH PRN IV FLUSH 02/20/17 06:45 (NS Flush) 2 ml BID IV FLUSH 02/20/17 09:00 02/20/17 08:39 (Tylenol) 650 mg Q4H PRN PO 02/20/17 06:45 (Zofran Inj) 4 mg Q6H PRN IVP 02/20/17 06:45 (Narcan Inj) 0.4 mg UNSCH PRN IV PUSH 02/20/17 06:45 (Agnieszka-Colace) 1 tab BID PO 02/20/17 09:00 02/20/17 08:39 (Milk Of Magnesia Liq) 30 ml Q12H PRN PO 02/20/17 06:45 (Senokot) 17.2 mg Q12H PRN PO 02/20/17 06:45 (Dulcolax Supp) 10 mg DAILY PRN RECTAL 02/20/17 06:45 (Lactulose Liq) 30 ml DAILY PRN PO 02/20/17 06:45 (Ecotrin Ec) 81 mg DAILY PO 02/20/17 15:45 UNV (Lipitor) 10 mg HS PO 02/20/17 21:00 UNV (Proscar) 5 mg DAILY PO 02/20/17 15:45 UNV (Coumadin) 7.5 mg DAILY PO 02/20/17 15:45 UNV Non-Formulary Medication 5 mg DAILY PO 02/20/17 15:45 UNV Non-Formulary Medication 15 mg DAILY PO 02/20/17 15:45 UNV Pharmacy Profile Note 0 ml @ 0 mls/hr UNSCH OTHER 02/20/17 15:45 UNV Family History The patient denies pertinent family history Social History The patient does not smoke or drink. Physical Exam Vital Signs Vital Signs Date Time Temp Pulse Resp B/P (MAP) Pulse Ox O2 Delivery O2 Flow Rate FiO2 02/20/17 11:39 98.0 89 18 131/78 (95) 95 02/20/17 10:14 89 02/20/17 09:53 97.8 94 18 148/65 (92) 96 02/20/17 08:26 79 18 109/63 (78) 98 02/20/17 05:58 59 20 106/64 (78) 95 Room Air 02/20/17 05:35 60 20 101/60 (74) Room Air 02/20/17 05:21 59 20 109/62 (78) 95 Room Air 02/20/17 04:56 60 20 108/58 (75) 96 Room Air 02/20/17 04:40 61 20 98/57 (71) 02/20/17 04:26 95 Room Air 02/20/17 04:04 99.0 62 20 106/55 (72) 95 Physical Exam GENERAL: Well-developed well-nourished male in no acute distress. SKIN: Warm and dry. HEAD: Atraumatic. Normocephalic. EYES: Pupils equal and round. No scleral icterus. No injection or drainage. ENT: No nasal bleeding or discharge. Mucous membranes pink and moist. NECK: Trachea midline. No JVD. CARDIOVASCULAR: Regular rate and rhythm. RESPIRATORY: No accessory muscle use. Clear to auscultation. Breath sounds equal bilaterally. GASTROINTESTINAL: Abdomen soft, non-tender, nondistended. Hepatic and splenic margins not palpable. MUSCULOSKELETAL: Extremities without clubbing, cyanosis, or edema. No obvious deformities. NEUROLOGICAL: Awake and alert. Somewhat confused. No obvious cranial nerve deficits. Motor grossly within normal limits. Five out of 5 muscle strength in the arms and legs. No pronator drift. No limb ataxia. Normal speech. PSYCHIATRIC: Slightly flattened affect. Laboratory Laboratory Tests Test 02/20/17 04:23 02/20/17 04:57 02/20/17 06:17 White Blood Count 15.7 Red Blood Count 4.37 Hemoglobin 14.4 Hematocrit 42.2 Mean Corpuscular Volume 96.5 Mean Corpuscular Hemoglobin 32.9 Mean Corpuscular Hemoglobin Concent 34.1 Red Cell Distribution Width 15.4 Platelet Count 125 Mean Platelet Volume 9.9 Neutrophils (%) (Auto) 91.8 Lymphocytes (%) (Auto) 1.9 Monocytes (%) (Auto) 5.6 Eosinophils (%) (Auto) 0.5 Basophils (%) (Auto) 0.2 Neutrophils # (Auto) 14.5 Lymphocytes # (Auto) 0.3 Monocytes # (Auto) 0.9 Eosinophils # (Auto) 0.1 Basophils # (Auto) 0.0 CBC Comment AUTO DIFF Differential Comment AUTO DIFF CONFIRMED Platelet Estimate LOW Platelet Morphology Comment CLUMPED Prothrombin Time 22.9 Prothromb Time International Ratio 2.3 Blood Urea Nitrogen 24 Creatinine 1.56 Random Glucose 111 Total Protein 7.3 Albumin 3.0 Calcium Level 8.2 Magnesium Level 1.8 Alkaline Phosphatase 66 Aspartate Amino Transf (AST/SGOT) 41 Alanine Aminotransferase (ALT/SGPT) 26 Total Bilirubin 0.9 Sodium Level 135 Potassium Level 4.5 Chloride Level 102 Carbon Dioxide Level 24.0 Anion Gap 9 Estimat Glomerular Filtration Rate 43 Total Creatine Kinase 188 Creatine Kinase MB 4.5 Troponin I 0.03 Lactic Acid Level 2.0 Urine Color YELLOW Urine Turbidity CLEAR Urine pH 5.5 Urine Specific [place] 1.016 Urine Protein TRACE Urine Glucose (UA) NEG Urine Ketones NEG Urine Occult Blood NEG Urine Nitrite NEG Urine Bilirubin NEG Urine Urobilinogen LESS THAN 2.0 Urine Leukocyte Esterase NEG Urine RBC LESS THAN 1 Urine WBC 1 Urine Squamous Epithelial Cells <1 Urine Mucus FEW Microscopic Urinalysis Comment CULT NOT INDICATED Date/Time Source Procedure Growth Status 02/20/17 04:57 Blood Peripheral Aerobic Blood Culture Pending Received 02/20/17 04:57 Blood Peripheral Anaerobic Blood Culture Pending Received Result Diagram: 02/20/1742202/20/17422 Imaging Last Impressions Head CT 02/20/17414 Signed Impressions: Service Date/Time: Monday, February 20, 2017 04:54 - CONCLUSION: No acute disease. Arvin Foster MD Chest X-Ray 02/20/17414 Signed Impressions: Service Date/Time: Monday, February 20, 2017 04:26 - CONCLUSION: No acute disease. Arvin Foster MD Caprini VTE Risk Assessment Caprini VTE Risk Assessment: Mod/High Risk (score >= 2) Caprini Risk Assessment Model Point Value = 1 Point Value = 2 Point Value = 3 Point Value = 5 Age 41-60 Minor surgery BMI > 25 kg/m2 Swollen legs Varicose veins or History of unexplained or recurrent spontaneous Oral contraceptives or hormone replacement Sepsis (< 1 month) Serious lung disease, including pneumonia (< 1 month) Abnormal pulmonary function Acute myocardial infarction Congestive heart failure (< 1 month) History of inflammatory bowel disease Medical patient at bed rest Age 61-74 Arthroscopic surgery Major open surgery (> 45 min) Laparoscopic surgery (> 45 min) Malignancy Confined to bed (> 72 hours) Immobilizing plaster cast Central venous access Age >= 75 History of VTE Family history of VTE Factor V Leiden Prothrombin 29515M Lupus anticoagulant Anticardiolipin antibodies Elevated serum homocysteine Heparin-induced thrombocytopenia Other congenital or acquired thrombophilia Stroke (< 1 month) Elective arthroplasty Hip, pelvis, or leg fracture Acute spinal cord injury (< 1 month) Prophylaxis Regimen Total Risk Factor Score Risk Level Prophylaxis Regimen 0-1 Low Early ambulation 2 Moderate Order ONE of the following: *Sequential Compression Device (SCD) *Heparin 5000 units SQ BID 3-4 Higher Order ONE of the following medications: *Heparin 5000 units SQ TID *Enoxaparin/Lovenox 40 mg SQ daily (WT < 150 kg, CrCl > 30 mL/min) *Enoxaparin/Lovenox 30 mg SQ daily (WT < 150 kg, CrCl > 10-29 mL/min) *Enoxaparin/Lovenox 30 mg SQ BID (WT < 150 kg, CrCl > 30 mL/min) AND/OR *Sequential Compression Device (SCD) 5 or more Highest Order ONE of the following medications: *Heparin 5000 units SQ TID (Preferred with Epidurals) *Enoxaparin/Lovenox 40 mg SQ daily (WT < 150 kg, CrCl > 30 mL/min) *Enoxaparin/Lovenox 30 mg SQ daily (WT < 150 kg, CrCl > 10-29 mL/min) *Enoxaparin/Lovenox 30 mg SQ BID (WT < 150 kg, CrCl > 30 mL/min) AND *Sequential Compression Device (SCD) Assessment and Plan Assessment and Plan Altered mental status/ weakness The patient has had multiple episodes of altered mental status in the past. There has been concern for dementia. CT of the head was unremarkable. The patient was recently started on nitrofurantoin and per the patient's he has acted this way with urinary tract infections in the past. - Check a vitamin B12 level, TSH and vitamin D level. - PT/OT. ST cognitive eval. - Neuro checks. - Continue nitrofurantoin. UTI/ leukocytosis The patient was recently started on Macrobid by urology. UA in the hospital was negative. Chest x-ray unremarkable. - Continue Macrobid. - Follow blood cultures. - Follow CBC. DVT The patient is chronically anticoagulated with Coumadin. INR is therapeutic. - Continue home Coumadin dose and have pharmacy assist with dosing. Chronic kidney disease Creatinine is at baseline. - Avoid nephrotoxic agents. Thrombocytopenia Chronic, not bleeding. - Follow CBC. Complete heart block Status post pacemaker placement. The patient recently had his pacemaker interrogated by cardiology and everything was said to be working normally. - Outpatient follow-up with cardiology. PPx: Coumadin Code Status Full Discussed Condition With Pt, pt's Gibson Starr Feb 20, 2017 15:52
[2017-02-20] MEDS ORDERED: WARFARIN SOD 7.5 MG TAB PO SCH (16:15)
[2017-02-20] MEDS ORDERED: ALFUZOSIN PO SCH (16:30)
[2017-02-20] MEDS ORDERED: OXYBUTININ PO SCH (16:30)
[2017-02-20] MEDS: NITROFURANTOIN MONOHYD MACROCR 100 MG CAP PO SCH (16:33)
[2017-02-20] MEDS: ASPIRIN EC 81 MG TABEC PO SCH (16:33)
[2017-02-20] MEDS: FINASTERIDE 5 MG TAB PO SCH (16:33)
[2017-02-20] MEDS ORDERED: ATORVASTATIN 10 MG TAB PO SCH (21:00)
[2017-02-21 04:00] VITALS: BP 151/70; PULSE 76; RESP 18; TEMP 98.7; O2SAT 98
[2017-02-21 04:40] LABS: AUTOMATED NEUTROPHIL # 10.9 TH/MM3 (1.8-7.7); BASOPHIL % 0.4 % (0.0-2.0); EOSINOPHIL # 0.3 TH/MM3 (0-0.4); HEMATOCRIT 37.2 % (39.0-51.0); LYMPH % 2.8 % (9.0-44.0); LYMPHOCYTE # 0.3 TH/MM3 (1.0-4.8); MEAN CELL VOLUME 97.5 FL (80.0-100.0); MEAN CORPUSCULAR HEMOGLOBIN 33.2 PG (27.0-34.0); MEAN CORPUSCULAR HGB CONC 34.1 % (32.0-36.0); MONO % 7.7 % (0.0-8.0); NEUT % 87.1 % (16.0-70.0); PLATELET COUNT 111 TH/MM3 (150-450); RED BLOOD COUNT 3.82 MIL/MM3 (4.50-5.90); RED CELL DISTRIBUTION WIDTH 15.4 % (11.6-17.2); WHITE BLOOD COUNT 12.5 TH/MM3 (4.0-11.0)
[2017-02-21 04:55] LABS: HEMO FLAGS AUTO DIFF
[2017-02-21 04:58] LABS: BICARBONATE 24.7 MEQ/L (21.0-32.0); POTASSIUM 4.2 MEQ/L (3.5-5.1)
[2017-02-21] MEDS: SODIUM CHLOR 0.9% 1000 ML INJ 1,000 ML IV SCH (06:41)
[2017-02-21 06:58] LABS: PLATELET ESTIMATE SMEAR LOW (NORMAL); PLATELET MORPHOLOGY NORMAL (NORMAL); SCAN/DIFF AUTO DIFF CONFIRMED
[2017-02-21 08:00] VITALS: PULSE 77
[2017-02-21 08:10] VITALS: BP 122/63; PULSE 70; RESP 18; TEMP 98.4; O2SAT 95
[2017-02-21] MEDS: DOCUSATE SODIUM 50 MG/SENNA 8.6 MG TAB PO SCH (08:26)
[2017-02-21] MEDS: SODIUM CHLORIDE 0.9% FLUSH 10 ML FLUSH IV FLUSH SCH (08:26)
[2017-02-21] MEDS: FINASTERIDE 5 MG TAB PO SCH (08:26)
[2017-02-21] MEDS: ASPIRIN EC 81 MG TABEC PO SCH (08:26)
[2017-02-21] MEDS: NITROFURANTOIN MONOHYD MACROCR 100 MG CAP PO SCH (08:27)
[2017-02-21] MEDS ORDERED: CHOL1000 PO (09:47)
--- NOTE | 2017-02-21 09:47 | HHI.DCPOC ---
Discharge Care Plan Diagnosis: (1) Leukocytosis (2) UTI (urinary tract infection) (3) Generalized weakness (4) Hypotension (5) Pacemaker Goals to Promote Your Health * To prevent worsening of your condition and complications * To maintain your health at the optimal level Directions to Meet Your Goals Take your medications as prescribed Follow your dietary instruction Follow activity as directed Keep your appointments as scheduled Take your immunizations and boosters as scheduled If your symptoms worsen call your PCP, if no PCP go to Urgent Care Center or Emergency Room Smoking is Dangerous to Your Health. Avoid second hand smoke Call the 24-hour hour crisis hotline for domestic abuse at Gibson Starr DO Feb 21, 2017 09:47
--- NOTE | 2017-02-21 09:53 | HHI.PR ---
Subjective Remarks The patient was resting comfortably in bed. His was at the bedside. They were anxious about going home. The patient said he had a normal bowel movement and urination this morning. He does not want to have any home services. Objective Vitals Vital Signs Date Time Temp Pulse Resp B/P (MAP) Pulse Ox O2 Delivery O2 Flow Rate FiO2 02/21/17 08:10 98.4 70 18 122/63 (82) 95 02/21/17 08:00 77 02/21/17 04:00 98.7 76 18 151/70 (97) 98 02/20/17 23:29 98.1 70 18 127/66 (86) 96 02/20/17 20:06 98.7 65 18 108/60 (76) 97 02/20/17 16:07 98.0 80 16 98/56 (70) 95 02/20/17 15:00 77 02/20/17 11:39 98.0 89 18 131/78 (95) 95 02/20/17 10:14 89 02/20/17 09:53 97.8 94 18 148/65 (92) 96 I/O 02/20/17 02/20/17 02/20/17 02/21/17 02/21/17 02/21/17 07:00 15:00 23:00 07:00 15:00 23:00 Intake Total 1000 ml 100 ml 2550 ml Output Total 1050 ml Balance 1000 ml 100 ml 1500 ml Intake Oral 750 ml IV Total 1000 ml 100 ml 1800 ml Output Urine Total 1050 ml # Voids 1 # Bowel Movements 1 Result Diagram: 02/21/17 0424 02/21/17423 Imaging Last Impressions Head CT 02/20/17414 Signed Impressions: Service Date/Time: Monday, February 20, 2017 04:54 - CONCLUSION: No acute disease. Arvin Foster MD Chest X-Ray 02/20/17414 Signed Impressions: Service Date/Time: Monday, February 20, 2017 04:26 - CONCLUSION: No acute disease. Arvin Foster MD Objective Remarks GENERAL: Well-developed well-nourished male in no acute distress. SKIN: Warm and dry. HEAD: Atraumatic. Normocephalic. EYES: Pupils equal and round. No scleral icterus. No injection or drainage. ENT: No nasal bleeding or discharge. Mucous membranes pink and moist. NECK: Trachea midline. No JVD. CARDIOVASCULAR: Regular rate and rhythm. RESPIRATORY: No accessory muscle use. Clear to auscultation. Breath sounds equal bilaterally. GASTROINTESTINAL: Abdomen soft, non-tender, nondistended. Hepatic and splenic margins not palpable. MUSCULOSKELETAL: Extremities without clubbing, cyanosis, or edema. No obvious deformities. NEUROLOGICAL: Awake and alert. Somewhat confused. No obvious cranial nerve deficits. Motor grossly within normal limits. Five out of 5 muscle strength in the arms and legs. No pronator drift. No limb ataxia. Normal speech. PSYCHIATRIC: Mood and affect appropriate. Medications and IVs Current Medications Medications (Trade) Dose Ordered Sig/Benito Route Start Time Stop Time Status Last Admin Sodium Chloride 1,000 ml @ 125 mls/hr Q8H IV 02/20/17 06:41 02/20/17 20:22 (NS Flush) 2 ml UNSCH PRN IV FLUSH 02/20/17 06:45 (NS Flush) 2 ml BID IV FLUSH 02/20/17 09:00 02/21/17 08:26 (Tylenol) 650 mg Q4H PRN PO 02/20/17 06:45 (Zofran Inj) 4 mg Q6H PRN IVP 02/20/17 06:45 (Narcan Inj) 0.4 mg UNSCH PRN IV PUSH 02/20/17 06:45 (Agnieszka-Colace) 1 tab BID PO 02/20/17 09:00 02/21/17 08:26 (Milk Of Magnesia Liq) 30 ml Q12H PRN PO 02/20/17 06:45 (Senokot) 17.2 mg Q12H PRN PO 02/20/17 06:45 (Dulcolax Supp) 10 mg DAILY PRN RECTAL 02/20/17 06:45 (Lactulose Liq) 30 ml DAILY PRN PO 02/20/17 06:45 (Ecotrin Ec) 81 mg DAILY PO 02/20/17 15:45 02/21/17 08:26 (Lipitor) 10 mg HS PO 02/20/17 21:00 02/20/17 20:22 (Proscar) 5 mg DAILY PO 02/20/17 15:45 02/21/17 08:26 (Coumadin) 7.5 mg DAILY@1600 PO 02/20/17 16:15 02/20/17 16:33 Patient Own Medication PT OWN MED: ALFUZO... DAILY PO 02/20/17 16:30 Future Hold Patient Own Medication PT OWN MED: OXYBUTI... DAILY PO 02/20/17 16:30 Future Hold Pharmacy Profile Note 0 ml @ 0 mls/hr UNSCH OTHER 02/20/17 15:45 (Macrobid) 100 mg BIDPC PO 02/20/17 18:00 02/21/17 08:27 (Vitamin B12 Inj) 1,000 mcg ONCE ONCE IM 02/21/17 09:45 02/21/17 09:46 UNV (Vitamin D3) 1,000 units DAILY PO 02/21/17 09:45 UNV A/P Assessment and Plan Altered mental status/ weakness The patient has had multiple episodes of altered mental status in the past. There has been concern for dementia. CT of the head was unremarkable. The patient was recently started on nitrofurantoin and per the patient's he has acted this way with urinary tract infections in the past. TSH WNL. - B12 level 245, will order B12 IM x 1. - vitamin D level 11.9, will start on PO supplementation. - PT/OT. ST cognitive eval. - Neuro checks. - Continue nitrofurantoin. UTI/ leukocytosis The patient was recently started on Macrobid by urology. UA in the hospital was negative. Chest x-ray unremarkable. Improving. - Continue Macrobid to complete a course. - Follow blood cultures. - repeat CBC in 3-5 days. DVT The patient is chronically anticoagulated with Coumadin. INR is therapeutic. - Continue home Coumadin dose. - check INR. Chronic kidney disease Creatinine continues to improve. - Avoid nephrotoxic agents. Thrombocytopenia Chronic, not bleeding. - repeat CBC in 3-5 days. Complete heart block Status post pacemaker placement. The patient recently had his pacemaker interrogated by cardiology and everything was said to be working normally. - Outpatient follow-up with cardiology. PPx: Coumadin Discharge Planning D/c home Gibson Starr DO Feb 21, 2017 09:53
[2017-02-21] MEDS ORDERED: CYANOCOBALAMIN 1000 MCG/ML VIAL IM ONE (10:15)
[2017-02-21] MEDS ORDERED: CHOLECALCIFEROL (VIT D3) 1000 UNIT TAB PO SCH (10:15)
== END 2017-02-21 10:51 | disposition home or self-care (01) ==
LOC: NEPC 03:56 → NEDA 06:45 → NEPGCP 08:38
PROVIDERS: ADMIT Hospitalist; ATTEND Hospitalist
DX: I95.9 Hypotension, unspecified (principal); I12.9 Hypertensive chronic kidney disease with stage 1 through stage 4 chronic kidney disease, or unspecified chronic kidney disease; N18.9 Chronic kidney disease, unspecified; E78.5 Hyperlipidemia, unspecified; R53.1 Weakness; I45.9 Conduction disorder, unspecified; D69.6 Thrombocytopenia, unspecified; N40.0 Benign prostatic hyperplasia without lower urinary tract symptoms; R94.31 Abnormal electrocardiogram [ECG] [EKG]; M89.9 Disorder of bone, unspecified; Z86.718 Personal history of other venous thrombosis and embolism; Z95.0 Presence of cardiac pacemaker; Z79.01 Long term (current) use of anticoagulants
CPT/HCPCS: 70450; 71010; 80048; 80053; 81001; 82306; 82550; 82552; 82607; 82948; 83605; 83735; 84443; 84484; 85025; 85610; 87040; 93005; 96125; 96361; 96365; 96372; 99285; G0378; G9168; G9169; G9170; J0696; J1644; J3420; J7030

== ENCOUNTER 2017-02-22 20:54 | Inpatient (IN) | payer BC ==
[~2017-02-22] VITALS: Ht 182.9 cm; Wt 101.5 kg
[~2017-02-22 20:54] MED LIST changes: -BACT800T5 PO; +CHOL1000 PO; +antiobiotic PO
[2017-02-22] MEDS ORDERED: SODIUM CHLOR 0.9% 1000 ML INJ 1,000 ML IV ONE (21:15)
[2017-02-22] MEDS ORDERED: ACETAMINOPHEN 325 MG TAB PO ONE (21:15)
[2017-02-22] MEDS ORDERED: VANCOMYCIN INJ 1,000 MG in SODIUM CHLOR 0.9% 250 ML INJ 250 ML IV ONE (21:15)
[2017-02-22] MEDS ORDERED: PIPERACIL-TAZO 3.375 GM PREMIX 50 ML IV ONE (21:15)
--- NOTE | 2017-02-22 21:42 | PD ---
HPI Chief Complaint: altered mentation Time Seen by Provider: 21:01 Travel History International Travel<30 days: No Contact w/Intl Traveler<30days: No Traveled to known affect area: No History of Present Illness HPI The patient is an 81 year old male who presents to the [facility] emergency department with a history of altered mental status that recurred again a few hours prior to arrival. The patient was brought in by ambulance services. The patient was noted to have a temperature 103.3 by ambulance services. IV access was obtained. The patient's blood pressure was reportedly 150 systolic, however the patient was given in total 1100 mL of normal saline en route to this facility. The patient's blood sugar prior to arrival was 142. The patient on arrival is oriented to person, place, he states the year is 2017, the month is February, and he is unsure why he is at the hospital. His family members have not yet arrived. According to ambulance services the patient was just discharged from the hospital yesterday after an admission for a urinary tract infection. The patient is currently on Macrobid. As the patient has some confusion, the patient's electronic medical record will be reviewed for additional history. The patient reports that he has had some mild cough and congestion. On review of systems, the patient denies having any neck pain, chest pain, shortness of breath, abdominal pain, vomiting, diarrhea, urinary symptoms, one-sided weakness, slurred speech, facial droop, or difficulty with word finding ability. He reports that he has not been eating or drinking well today. [facility] Past Medical History Narrative Medical The patient's past medical history is significant for hypertension, dyslipidemia , history of DVT, TIA, osteoarthritis, history of a complete heart block status post pacemaker placement, history of a GI bleed, history of diverticular disease requiring hemicolectomy, history of benign prosthetic hypertrophy status post TURP, history of chronic kidney disease, urethral stricture, venous insufficiency. Hx Anticoagulant Therapy: Yes (COUMADIN, ASPIRIN ) Arthritis: Yes (ARMS) Autoimmune Disease: No Blood Disorders: No Anxiety: No Depression: No Heart Rhythm Problems: No Cancer: No Cardiovascular Problems: Yes (pacemaker last interrogated past tue02/18/17) High Cholesterol: Yes Chemotherapy: No Chest Pain: No Congestive Heart Failure: No COPD: No Diabetes: No Diminished Hearing: No Deep Vein Thrombosis: Yes Endocrine: No Gastrointestinal Disorders: Yes (DIVERTICULITIS, COLON RESECTION) GERD: No Genitourinary: No Hepatitis: No Hiatal Hernia: No Hypertension: Yes Immune Disorder: No Implanted Vascular Access Dvce: No Musculoskeletal: No Neurologic: No Psychiatric: No Reproductive: No Respiratory: No Radiation Therapy: No Sleep Apnea: No Thyroid Disease: No Triglycerides - High: Yes Ulcer: No Past Surgical History Narrative Surgical The patient's past surgical history is significant for an abdominal hernia repair, appendectomy, cholecystectomy, hemicolectomy. Abdominal Surgery: Yes (gallbladder removed, collectomy) Appendectomy: Yes Body Medical Devices: MESH IN ABD Cardiac Surgery: No Cholecystectomy: Yes Ear Surgery: No Endocrine Surgery: No Eye Surgery: No Genitourinary Surgery: Yes (TURP) Gynecologic Surgery: No Neurologic Surgery: No Oral Surgery: No Pacemaker: Yes Thoracic Surgery: No Tonsillectomy: Yes Other Surgery: Yes Social History Alcohol Use: No Tobacco Use: No (QUIT IN ) Substance Use: No Allergies-Medications (Allergen,Severity, Reaction): Coded Allergies: No Known Allergies (Verified , 03/23/16) Reported Meds & Prescriptions Reported Meds & Active Scripts Active Gnp Vitamin D3 Extra Stre (Cholecalciferol) 1,000 Unit Tab 1,000 Units PO DAILY Ultram (Tramadol HCl) 50 Mg Tab 50 Mg PO Q4H PRN Reported [antiobiotic] PO BID Aspirin 81 (Aspirin) 81 Mg Tabdr 81 Mg PO DAILY Atorvastatin (Atorvastatin Calcium) 10 Mg Tab 10 Mg PO HS Oxybutynin ER 24 HR (Oxybutynin Chloride) 15 Mg Tab 15 Mg PO DAILY Alfuzosin ER 24 HR 10 Mg Tab 5 Mg PO DAILY Finasteride 5 Mg Tab 5 Mg PO DAILY Do not crush. Warfarin 7.5 Mg Tab 7.5 Mg PO DAILY Review of Systems Except as stated in HPI: all other systems reviewed are Neg General / Constitutional: Positive: Fever, Chills Eyes: No: Visual changes HENT: Positive: Congestion, No: Headaches Cardiovascular: No: Chest Pain or Discomfort Respiratory: Positive: Cough, No: Shortness of Breath Gastrointestinal: Positive: Loss of Appetite, No: Nausea, Vomiting, Diarrhea, Abdominal Pain, Indigestion Genitourinary: Positive: Frequency, No: Urgency, Dysuria Musculoskeletal: No: Pain Skin: No Rash Neurologic: Positive: Change in Mentation, No: Weakness, Focal Abnormalities, Slurred Speech, Sensory Disturbance Psychiatric: No: Depression Endocrine: No: Polydipsia Hematologic/Lymphatic: No: Easy Bruising Physical Exam Narrative General: The patient is a well-developed well-nourished male in no acute distress. Head and Neck exam: Head is normocephalic atraumatic. Eyes: EOMI, pupils are equal round and reactive to light. Nose: Midline septum with pink mucous membranes Mouth: Dentition unremarkable. Tacky mucus membranes. Posterior oropharynx is not erythematous. No tonsillar hypertrophy. Uvula midline. Airway patent. Neck: No palpable lymphadenopathy. No nuchal rigidity. No thyromegaly. Cardiovascular: Regular rate and rhythm without murmurs, gallops, or rubs. Lungs: Decreased breath sounds in bilateral bases, no wheezes, rhonchi, or crackles. An occasional dry cough on examination is noted. Abdomen: Soft, without tenderness to palpation in all 4 quadrants of the abdomen. No guarding, rebound, or rigidity. Normal bowel sounds are audible. No tenderness on palpation of McBurney's point. Extremities: No clubbing or cyanosis. The patient has 1+ pitting edema of the left leg compared to the right with venous stasis changes that are more prominent in the left leg. No calf tenderness on palpation. 2+ pulses in all 4 extremities. Back: No costovertebral angle tenderness to palpation. Neurologic Exam: Cranial nerves 2-12 were intact on exam. Strength is 5/5 in all 4 extremities. No sensory deficits noted. The patient is oriented to person, place, however not time. Skin Exam: No rash noted. Intact skin that is warm and dry. Data Data Last Documented VS Vital Signs Date Time Temp Pulse Resp B/P (MAP) Pulse Ox O2 Delivery O2 Flow Rate FiO2 02/22/17 21:54 101.1 62 16 137/72 (93) 98 02/22/17 21:53 Nasal Cannula 2.00 Orders Orders Electrocardiogram (02/22/17 21:09) Complete Blood Count With Diff (02/22/17 21:09) Comprehensive Metabolic Panel (02/22/17 21:09) B-Type Natriuretic Peptide (02/22/17 21:09) Prothrombin Time / Inr (Pt) (02/22/17 21:09) Act Partial Throm Time (Ptt) (02/22/17 21:09) Blood Culture (02/22/17 21:09) C-Reactive Protein (Crp) (02/22/17 21:09) Lipase (02/22/17 21:09) Influenzae A/B Antigen (02/22/17 21:09) Iv Access Insert/Monitor (02/22/17 21:09) Ecg Monitoring (02/22/17 21:09) Oximetry (02/22/17 21:09) Lactic Acid Sepsis Protocol (02/22/17 21:09) Ct Pulmonary Angiogram (02/22/17 21:09) Vancomycin Inj (Vancomycin Inj) (02/22/17 21:15) Piperacil-Tazo 3.375 Gm Premix (Zosyn 3. (02/22/17 21:15) Sodium Chlor 0.9% 1000 Ml Inj (Ns 1000 M (02/22/17 21:15) Acetaminophen (Tylenol) (02/22/17 21:15) Admit Order (Ed Use Only) (02/23/17 01:00) Labs Laboratory Tests Test 02/22/17 23:05 White Blood Count 10.9 TH/MM3 Red Blood Count 3.65 MIL/MM3 Hemoglobin 11.5 GM/DL Hematocrit 34.4 % Mean Corpuscular Volume 94.2 FL Mean Corpuscular Hemoglobin 31.6 PG Mean Corpuscular Hemoglobin Concent 33.5 % Red Cell Distribution Width 14.9 % Platelet Count 136 TH/MM3 Mean Platelet Volume 9.1 FL Neutrophils (%) (Auto) 91.2 % Lymphocytes (%) (Auto) 2.0 % Monocytes (%) (Auto) 5.5 % Eosinophils (%) (Auto) 0.9 % Basophils (%) (Auto) 0.4 % Neutrophils # (Auto) 10.0 TH/MM3 Lymphocytes # (Auto) 0.2 TH/MM3 Monocytes # (Auto) 0.6 TH/MM3 Eosinophils # (Auto) 0.1 TH/MM3 Basophils # (Auto) 0.0 TH/MM3 CBC Comment DIFF FINAL Differential Comment Prothrombin Time 16.5 SEC Prothromb Time International Ratio 1.6 RATIO Activated Partial Thromboplast Time 29.2 SEC Blood Urea Nitrogen 25 MG/DL Creatinine 1.60 MG/DL Random Glucose 132 MG/DL Total Protein 6.1 GM/DL Albumin 2.7 GM/DL Calcium Level 7.7 MG/DL Alkaline Phosphatase 47 U/L Aspartate Amino Transf (AST/SGOT) 51 U/L Alanine Aminotransferase (ALT/SGPT) 52 U/L Total Bilirubin 0.6 MG/DL Sodium Level 135 MEQ/L Potassium Level 3.8 MEQ/L Chloride Level 105 MEQ/L Carbon Dioxide Level 23.1 MEQ/L Anion Gap 7 MEQ/L Estimat Glomerular Filtration Rate 41 ML/MIN Lactic Acid Level 1.4 mmol/L C-Reactive Protein 10.00 MG/DL B-Type Natriuretic Peptide 752 PG/ML Lipase 84 U/L [facility] Medical Decision Making Medical Screen Exam Complete: Yes Emergency Medical Condition: Yes Medical Record Reviewed: Yes Interpretation(s) Last Impressions CT Angiography 02/22/172108 Signed Impressions: Service Date/Time: Thursday, February 23, 2017 00:14 - CONCLUSION: 1. The study is negative for pulmonary embolism. 2. Bilateral pleural effusions, peripheral interstitial opacities, and mediastinal adenopathy. Mario Quinones MD Differential Diagnosis Sepsis related to urinary tract infection, versus pneumonia, versus influenza, versus viral syndrome Narrative Course During the course of the patients emergency department visit, the patients history, examination, and differential diagnosis were reviewed with the patient. The patient was placed on a legal entity controller with oximetry and frequent blood pressure monitoring. The patient had IV access obtained and blood work sent for analysis. Blood cultures 2 were ordered, lactic acid was sent for analysis. The patient's electronic medical record was reviewed. The patient was admitted on February 20 and discharged on February 21 related to altered mental status and weakness. The patient was previously on Macrobid. The urinalysis showed no acute abnormality. The patient was admitted with an elevated white blood cell count had decreased on the second day. The patient underwent a CT scan of the brain that showed no acute abnormality. The patient had a chest x-ray that showed no acute abnormality. The patient had an ECG done on arrival here that shows an electronic ventricular paced rhythm, heart rate of 61. No acute ST segment changes. The patient was initially provided Zosyn 3.375 g IV, vancomycin 1 g IV, normal saline IV fluid bolus was continued. The patient was given Tylenol for fever. The patients laboratory studies were reviewed and remarkable for a white count of 10.9, hemoglobin 11.5, platelets 136 with 91.2 neutrophils, CMP is remarkable for sodium of 135, BUN 25, creatinine 1.60, glucose 132, calcium 7.7 , AST 51, C-reactive protein 10, BNP 752, albumin 2.7, lipase 84, lactic acid 1.4. PT 16.5, PTT 29.2, influenza testing is negative. Radiology studies were reviewed and remarkable for a CTA of the chest that reveals no evidence for pulmonary embolism, bilateral pleural effusions, perihilar interstitial opacities and mediastinal adenopathy. The patients results were discussed with the patient, including the plan of care. I explained that further testing and/ or monitoring is indicated based on the patients history, examination, and/ or laboratory findings. Therefore, I recommended admission for additional evaluation. The patient expressed understanding and was agreeable with this plan. The patient was admitted to the hospital in stable condition and sent to a bed under the care of the [facility] service. Physician Communication Physician Communication The patient's case including history, pertinent physical examination findings, and laboratory studies were discussed with Dr. Hung. It was agreed that the patient would be admitted to the [facility] service. Diagnosis Primary Impression: Altered mental status Qualified Codes: R41.0 - Disorientation, unspecified Additional Impression: Bilateral pneumonia Qualified Codes: J18.9 - Pneumonia, unspecified organism Admitting Information Admitting Physician Requests: Admit Kaci Gomez MD Feb 22, 2017 21:42
[2017-02-22 21:53] VITALS: O2SAT 98
[2017-02-22 21:54] VITALS: BP 137/72; PULSE 62; RESP 16; TEMP 101.1; O2SAT 98
[2017-02-22 23:32] LABS: BASOPHIL % 0.4 % (0.0-2.0); EOSINOPHIL # 0.1 TH/MM3 (0-0.4); EOSINOPHIL % 0.9 % (0.0-4.0); HEMATOCRIT 34.4 % (39.0-51.0); HEMO FLAGS DIFF FINAL; LYMPHOCYTE # 0.2 TH/MM3 (1.0-4.8); MEAN CELL VOLUME 94.2 FL (80.0-100.0); MEAN CORPUSCULAR HEMOGLOBIN 31.6 PG (27.0-34.0); MEAN CORPUSCULAR HGB CONC 33.5 % (32.0-36.0); MONO % 5.5 % (0.0-8.0); NEUT % 91.2 % (16.0-70.0); PLATELET COUNT 136 TH/MM3 (150-450); RED BLOOD COUNT 3.65 MIL/MM3 (4.50-5.90); RED CELL DISTRIBUTION WIDTH 14.9 % (11.6-17.2); WHITE BLOOD COUNT 10.9 TH/MM3 (4.0-11.0)
[2017-02-22 23:42] LABS: APTT (PATIENT) 29.2 SEC (24.3-30.1); INTERNATIONAL NORMALIZED RATIO 1.6 RATIO; PROTHROMBIN TIME - PATIENT 16.5 SEC (9.8-11.6)
[2017-02-23] VITALS (9 sets, daily range): BP systolic 102–147; BP diastolic 55–89; PULSE 58–62; RESP 17–24; TEMP 95.8–101.8; O2SAT 93–100
[2017-02-23] MEDS ORDERED: IODIXANOL 320 MG/ML 10 ML VIAL (for Rad CT) IVCONTRAST ONE (00:01)
[2017-02-23 00:05] LABS: ANION GAP 7 MEQ/L (5-15); AST (GOT) 51 U/L (15-37); BICARBONATE 23.1 MEQ/L (21.0-32.0); BLOOD UREA NITROGEN 25 MG/DL (7-18); CHLORIDE 105 MEQ/L (98-107); GLOMERULAR FILTRATION RATE 41 ML/MIN (>89); POTASSIUM 3.8 MEQ/L (3.5-5.1); SODIUM (NA) 135 MEQ/L (136-145)
[2017-02-23 00:12] LABS: ALKALINE PHOSPHATASE 47 U/L (45-117); ALT (GPT) 52 U/L (12-78); TOTAL BILIRUBIN ADULT 0.6 MG/DL (0.2-1.0)
--- NOTE | 2017-02-23 00:44 | RADRPT ---
EXAM DATE/TIME: 02/23/2017 00:14 [place] COMPARISON: No previous studies available for comparison. INDICATIONS : Shortness of breath. IV CONTRAST: 50 cc Visipaque (iodixanol) IV RADIATION DOSE: 23.29 CTDIvol (mGy) MEDICAL HISTORY : Cardiovascular disease. Hypertension. Deep venous thrombosis. SURGICAL HISTORY : Pacemaker. Appendectomy.Cholecystectomy. ENCOUNTER: Initial ACUITY: 1 day PAIN SCALE: 3/10 LOCATION: Bilateral chest TECHNIQUE: Volumetric scanning of the chest was performed using a pulmonary embolism protocol MIP images were re constructed. Using automated exposure control and adjustment of the mA and/or kV according to patien t size, radiation dose was kept as low as reasonably achievable to obtain optimal diagnostic quality images. DICOM format image data is available electronically for review and comparison. Follow-up recommendations for detected pulmonary nodules are based at a minimum on nodule size and pa tient risk factors according to Fleischner Society Guidelines. FINDINGS: PULMONARY ARTERIES: No filling defects are seen in the pulmonary arteries through the segmental level. LUNGS: Diffuse bilateral interstitial infiltrates the periphery of both lower. No focal areas of consolidat ion. No focal masses seen. PLEURAE: Small bilateral pleural effusions measuring up to 2.4 cm. MEDIASTINUM: Several enlarged middle mediastinal nodes in the pretracheal, AP window (1.9 cm), and subcarinal kelsi on (1.9 cm). A CONCLUSION: 1. The study is negative for pulmonary embolism. 2. Bilateral pleural effusions, peripheral interstitial opacities, and mediastinal adenopathy. Mario Quinones MD on February 23, 2017 at 0:40 Board Certified Radiologist. This report was verified electronically.
[2017-02-23] MEDS ORDERED: SODIUM CHLORIDE 0.9% FLUSH 10 ML FLUSH IV FLUSH PRN (02:00)
[2017-02-23] MEDS ORDERED: NALOXONE HCL 0.4 MG/ML AMP IV PUSH PRN (02:00)
[2017-02-23] MEDS ORDERED: ACETAMINOPHEN 325 MG TAB PO PRN (02:00)
[2017-02-23] MEDS ORDERED: RESP: ALBUTEROL 2.5 MG/IPRATROPIUM 0.5 MG NEB (PRN) NEB (02:00)
[2017-02-23] MEDS ORDERED: ONDANSETRON HCL 4 MG/2 ML VIAL IVP PRN (02:00)
[2017-02-23] MEDS ORDERED: FUROSEMIDE 40 MG/4 ML VIAL IV PUSH ONE (02:15)
[2017-02-23] MEDS ORDERED: WARFARIN SOD 7.5 MG TAB PO ONE (02:30)
--- NOTE | 2017-02-23 02:39 | HHI.HP ---
HPI Service [facility] Primary Care Physician Richard Velazquez MD Admission Diagnosis Pneumonia, AMS, Fever Diagnoses: Travel History International Travel<30 Days: No Contact w/Intl Traveler <30 Da: No Traveled to Known Affected Are: No History of Present Illness 81-year-old male with a past medical history significant for 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 The patient was discharged from the hospital on 02/21 where he was treated for altered mental status and UTI. He was discharged to home after his mental status returned to baseline. The patient's reports that tonight he became altered again. She described them as weak, unable to pull himself up out of bed and states he was "out of it." He was also febrile to 101 at home. She called EMS who found his temperature to be 103. Patient has no history of CHF however his BNP is 752. CTA significant for bilateral pleural effusions, peripheral interstitial opacities and mediastinal adenopathy. Review of Systems Denies fever or chills Denies blurry vision, otorrhea, rhinorrhea Denies sore throat and cough No chest pain, palpitations, shortness of breath No abdominal pain Denies constipation/diarrhea/nausea/vomiting Denies muscle pain/positive weakness No rashes Past Family Social History Past Medical History Hypertension Hyperlipidemia DVT 2 TIA Complete heart block requiring pacemaker placement, pacemaker last interrogated approximately one week ago History of GI bleed Diverticular disease requiring hemicolectomy BPH status post TURP Chronic kidney disease Venous insufficiency Past Surgical History Abdominal hernia repair Appendectomy Cholecystectomy Hemicolectomy Pacemaker placement on 01/2016 Reported Medications Reported Meds & Active Scripts Active Gnp Vitamin D3 Extra Stre (Cholecalciferol) 1,000 Unit Tab 1,000 Units PO DAILY Ultram (Tramadol HCl) 50 Mg Tab 50 Mg PO Q4H PRN Reported [antiobiotic] PO BID Aspirin 81 (Aspirin) 81 Mg Tabdr 81 Mg PO DAILY Atorvastatin (Atorvastatin Calcium) 10 Mg Tab 10 Mg PO HS Oxybutynin ER 24 HR (Oxybutynin Chloride) 15 Mg Tab 15 Mg PO DAILY Alfuzosin ER 24 HR 10 Mg Tab 5 Mg PO DAILY Finasteride 5 Mg Tab 5 Mg PO DAILY Do not crush. Warfarin 7.5 Mg Tab 7.5 Mg PO DAILY Allergies: Coded Allergies: No Known Allergies (Verified , 03/23/16) Family History Negative for family history of CAD/DM Social History Denies tobacco, alcohol, illicit drugs. Remote history of smoking in the 1960s. Physical Exam Vital Signs Vital Signs Date Time Temp Pulse Resp B/P (MAP) Pulse Ox O2 Delivery O2 Flow Rate FiO2 02/22/17 21:54 101.1 62 16 137/72 (93) 98 02/22/17 21:53 98 Nasal Cannula 2.00 Physical Exam GENERAL: Drowsy, male lying in bed SKIN: No rashes, ecchymoses or lesions. Cool and dry. HEAD: Atraumatic. Normocephalic. No temporal or scalp tenderness. EYES: Pupils equal round and reactive. Extraocular motions intact. No scleral icterus. No injection or drainage. ENT: Nose without bleeding, purulent drainage or septal hematoma. Throat without erythema, tonsillar hypertrophy or exudate. Uvula midline. Airway patent. NECK: Trachea midline. No JVD or lymphadenopathy. Supple, nontender, no meningeal signs. CARDIOVASCULAR: Regular rate and rhythm without murmurs, gallops, or rubs. RESPIRATORY: Bilateral crackles. Sparse wheezing. GASTROINTESTINAL: Abdomen soft, non-tender, nondistended. No hepato-splenomegaly , or palpable masses. No guarding. MUSCULOSKELETAL: Extremities without clubbing, cyanosis, or edema. No joint tenderness, effusion, or edema noted. No calf tenderness. NEUROLOGICAL: Awake and alert. Cranial nerves II through XII intact. Motor and sensory grossly within normal limits. Normal speech. Patient is oriented to self and place. Laboratory Laboratory Tests Test 02/22/17 23:05 White Blood Count 10.9 Red Blood Count 3.65 Hemoglobin 11.5 Hematocrit 34.4 Mean Corpuscular Volume 94.2 Mean Corpuscular Hemoglobin 31.6 Mean Corpuscular Hemoglobin Concent 33.5 Red Cell Distribution Width 14.9 Platelet Count 136 Mean Platelet Volume 9.1 Neutrophils (%) (Auto) 91.2 Lymphocytes (%) (Auto) 2.0 Monocytes (%) (Auto) 5.5 Eosinophils (%) (Auto) 0.9 Basophils (%) (Auto) 0.4 Neutrophils # (Auto) 10.0 Lymphocytes # (Auto) 0.2 Monocytes # (Auto) 0.6 Eosinophils # (Auto) 0.1 Basophils # (Auto) 0.0 CBC Comment DIFF FINAL Differential Comment Prothrombin Time 16.5 Prothromb Time International Ratio 1.6 Activated Partial Thromboplast Time 29.2 Blood Urea Nitrogen 25 Creatinine 1.60 Random Glucose 132 Total Protein 6.1 Albumin 2.7 Calcium Level 7.7 Alkaline Phosphatase 47 Aspartate Amino Transf (AST/SGOT) 51 Alanine Aminotransferase (ALT/SGPT) 52 Total Bilirubin 0.6 Sodium Level 135 Potassium Level 3.8 Chloride Level 105 Carbon Dioxide Level 23.1 Anion Gap 7 Estimat Glomerular Filtration Rate 41 Lactic Acid Level 1.4 C-Reactive Protein 10.00 B-Type Natriuretic Peptide 752 Lipase 84 Date/Time Source Procedure Growth Status 02/22/17 23:10 Blood Peripheral Aerobic Blood Culture Pending Received 02/22/17 23:10 Blood Peripheral Anaerobic Blood Culture Pending Received 02/22/17 23:35 Nasal Aspirate Influenza Types A,B Antigen (VLADIMIR) - Final NEGATIVE FOR FLU A AND B ANTIGEN.... Complete Result Diagram: 02/22/17 2305 02/22/17 2305 Caprini VTE Risk Assessment Caprini VTE Risk Assessment: Mod/High Risk (score >= 2) Caprini Risk Assessment Model Point Value = 1 Point Value = 2 Point Value = 3 Point Value = 5 Age 41-60 Minor surgery BMI > 25 kg/m2 Swollen legs Varicose veins or History of unexplained or recurrent spontaneous Oral contraceptives or hormone replacement Sepsis (< 1 month) Serious lung disease, including pneumonia (< 1 month) Abnormal pulmonary function Acute myocardial infarction Congestive heart failure (< 1 month) History of inflammatory bowel disease Medical patient at bed rest Age 61-74 Arthroscopic surgery Major open surgery (> 45 min) Laparoscopic surgery (> 45 min) Malignancy Confined to bed (> 72 hours) Immobilizing plaster cast Central venous access Age >= 75 History of VTE Family history of VTE Factor V Leiden Prothrombin [id number] Lupus anticoagulant Anticardiolipin antibodies Elevated serum homocysteine Heparin-induced thrombocytopenia Other congenital or acquired thrombophilia Stroke (< 1 month) Elective arthroplasty Hip, pelvis, or leg fracture Acute spinal cord injury (< 1 month) Prophylaxis Regimen Total Risk Factor Score Risk Level Prophylaxis Regimen 0-1 Low Early ambulation 2 Moderate Order ONE of the following: *Sequential Compression Device (SCD) *Heparin 5000 units SQ BID 3-4 Higher Order ONE of the following medications: *Heparin 5000 units SQ TID *Enoxaparin/Lovenox 40 mg SQ daily (WT < 150 kg, CrCl > 30 mL/min) *Enoxaparin/Lovenox 30 mg SQ daily (WT < 150 kg, CrCl > 10-29 mL/min) *Enoxaparin/Lovenox 30 mg SQ BID (WT < 150 kg, CrCl > 30 mL/min) AND/OR *Sequential Compression Device (SCD) 5 or more Highest Order ONE of the following medications: *Heparin 5000 units SQ TID (Preferred with Epidurals) *Enoxaparin/Lovenox 40 mg SQ daily (WT < 150 kg, CrCl > 30 mL/min) *Enoxaparin/Lovenox 30 mg SQ daily (WT < 150 kg, CrCl > 10-29 mL/min) *Enoxaparin/Lovenox 30 mg SQ BID (WT < 150 kg, CrCl > 30 mL/min) AND *Sequential Compression Device (SCD) Assessment and Plan Assessment and Plan Assessment/plan: 1. PNA CTA showed peripheral interstitial opacities Patient febrile at home and on arrival to the ED No leukocytosis, lactic acid within normal limits Rocephin/azithromycin 2. New onset CHF Patient with bilateral pleural effusions, BNP 752, crackles on exam Echo pending Cardiology consulted, appreciate recommendations IV Lasix 1 3. AMS Waxing/waning Patient with history of TIA May be underlying component of dementia Head CT negative on 02/20 Brain MRI pending 4. Urinary incontinence New onset, 3 weeks May be secondary to urinary tract infection Patient follows with Urology, needs to f/u outpatient 5. CKD Cr 1.60, at baseline Monitor renal function 6. h/o DVT On Coumadin INR subtherapeutic at 1.6 Continue Coumadin, pharmacy to assist with this 7. Complete heart block Status post pacemaker implantation Last interrogation approximately 1 week ago 8. HTN/HLD Continue home medications once reconciled FEN Heart healthy diet Electrolytes: monitor and replete prn Coumadin and heparin Case discussed with ER physician at length Physician Certification 2 Midnight Certification Type: Admission for Inpatient Services Order for Inpatient Services The services are ordered in accordance with Medicare regulations or non- Medicare payer requirements, as applicable. In the case of services not specified as inpatient-only, they are appropriately provided as inpatient services in accordance with the 2-midnight benchmark. Estimated LOS (days): 2 2 days is the estimated time the patient will need to remain in the hospital, assuming treatment plan goals are met and no additional complications. Post-Hospital Plan: Not yet determined Liset Hung MD Feb 23, 2017 02:38
[2017-02-23] MEDS: AZITHROMYCIN INJ 500 MG in SODIUM CHLOR 0.9% 250 ML INJ 250 ML IV SCH (02:56)
[2017-02-23] MEDS: cefTRIAXone INJ 1,000 MG in SODIUM CHLORIDE 0.9% INJ 100 ML IV SCH (02:57)
[2017-02-23] MEDS: RESP: ALBUTEROL 2.5 MG/IPRATROPIUM 0.5 MG NEB (SCH) NEB ×4 (03:01→21:24)
[2017-02-23] MEDS: HEPARIN SODIUM - SQ 10,000 UNITS/ML VIAL SQ SCH ×3 (05:29→21:37)
[2017-02-23 07:37] LABS: PROTHROMBIN TIME - PATIENT 20.7 SEC (9.8-11.6)
[2017-02-23 07:51] LABS: ALT (GPT) 47 U/L (12-78); ANION GAP 8 MEQ/L (5-15); BICARBONATE 24.2 MEQ/L (21.0-32.0); BLOOD UREA NITROGEN 26 MG/DL (7-18); CHLORIDE 104 MEQ/L (98-107); GLOMERULAR FILTRATION RATE 41 ML/MIN (>89); POTASSIUM 3.2 MEQ/L (3.5-5.1); SODIUM (NA) 136 MEQ/L (136-145)
[2017-02-23 07:54] LABS: ALKALINE PHOSPHATASE 46 U/L (45-117); AST (GOT) 40 U/L (15-37); TOTAL BILIRUBIN ADULT 0.5 MG/DL (0.2-1.0)
[2017-02-23] MEDS: SODIUM CHLORIDE 0.9% FLUSH 10 ML FLUSH IV FLUSH SCH ×2 (09:00→21:42)
[2017-02-23] MEDS ORDERED: traMADol HCL 50 MG TAB PO PRN (10:15)
[2017-02-23] MEDS ORDERED: POTASSIUM CHLORIDE 20 MEQ CONTROLLED RELEASE TAB PO ONE ×2 (12:00→15:00)
[2017-02-23] MEDS ORDERED: MAGNESIUM OXIDE 400 MG TAB PO ONE (12:30)
--- NOTE | 2017-02-23 14:44 | EKG ---
Date Performed: 02/23/2017 Time Performed: 10:47:26 PTAGE: 81 years EKG: ELECTRONIC VENTRICULAR PACEMAKER ABNORMAL RHYTHM ECG PREVIOUS TRACING : 02/22/2017 21.12 DOCTOR: Kenny Horton Interpretating Date/Time 02/23/2017 14:43:22
--- NOTE | 2017-02-23 15:30 | EKG ---
Date Performed: 02/22/2017 Time Performed: 21:12:35 PTAGE: 81 years EKG: ELECTRONIC VENTRICULAR PACEMAKER ABNORMAL RHYTHM ECG PREVIOUS TRACING : 02/20/2017 04.44 DOCTOR: Kenny Horton Interpretating Date/Time 02/23/2017 15:29:36
--- NOTE | 2017-02-23 16:07 | RADRPT ---
EXAM DATE/TIME: 02/23/2017 15:09 [facility] COMPARISON: CT BRAIN W/O CONTRAST, February 20, 2017, 4:54. INDICATIONS : Altered mental status. TIA. MEDICAL HISTORY : Hypertension. Diverticulosis. Deep venous thrombosis. SURGICAL HISTORY : Pacemaker. Cholecystectomy. Umbilical hernia repair. ENCOUNTER: Subsequent ACUITY: 2 day PAIN SCORE: 0/10 LOCATION: head. TECHNIQUE: Multiplanar, multisequence MRI of the brain was performed without contrast. FINDINGS: CEREBRUM: The ventricles are normal for age. There is mild cortical atrophy. No evidence of midline shift, mas s lesion, hemorrhage or acute infarction. No extraaxial fluid collections are seen. The pituitary g land and suprasellar cistern are normal in configuration. WHITE MATTER: No significant signal abnormalities are seen in the white matter. POSTERIOR FOSSA: The cerebellum and brainstem are intact. The 4th ventricle is midline. The cerebellopontine angle is unremarkable. The cerebellar tonsils are normal in position. DIFFUSION IMAGING: No focal areas of restricted diffusion are seen. No evidence of acute infarction. EXTRACRANIAL: The visualized portions of the orbits and paranasal sinuses are unremarkable. CONCLUSION: 1. Cortical atrophy. 2. No findings to indicate acute cortical infarction. Casey Hall MD on February 23, 2017 at 16:02 Board Certified Radiologist. This report was verified electronically.
--- NOTE | 2017-02-23 16:22 | RADRPT ---
EXAM DATE/TIME: 02/23/2017 15:09 [facility] COMPARISON: No previous studies available for comparison. INDICATIONS : Altered mental status. TIA. MEDICAL HISTORY : Hypertension. Diverticulosis. Deep venous thrombosis. SURGICAL HISTORY : Pacemaker. Cholecystectomy. Umbilical hernia repair. ENCOUNTER: Subsequent ACUITY: 2 day PAIN SCORE: 0/10 LOCATION: head. Please note a normal MRA of the brain does not entirely exclude the possibility of a small aneurysm, nor the possibility of distal intracranial vessel disease. TECHNIQUE: 3D time of flight MRA was performed. Source images, multiplanar STS MIP, and 3D volume MIP reconstru ctions were reviewed. FINDINGS: There is excellent visualization of the major intracranial arteries out to the second-order branch ve ssels. There is no evidence for aneurysm, vessel truncation or stenosis, and no evidence for vascula r malformation. CONCLUSION: 1. No evidence of proximal stenotic or occlusive disease. 2. No evidence of significant vasculopathy, aneurysm or vascular malformation. Abner Agarwal MD on February 23, 2017 at 16:18 Board Certified Radiologist. This report was verified electronically.
--- NOTE | 2017-02-23 17:11 | HHI.PR ---
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 The patient was discharged from the hospital on 02/21 where he was treated for altered mental status and UTI. He was discharged to home after his mental status returned to baseline. The patient's reports that tonight he became altered again. She described them as weak, unable to pull himself up out of bed and states he was "out of it." He was also febrile to 101 at home. She called EMS who found his temperature to be 103. Patient has no history of CHF however his BNP is 752. CTA significant for bilateral pleural effusions, peripheral interstitial opacities and mediastinal adenopathy. 02/23: Patient admitted today he is a patient of Doctor Richard Velazquez, somnolent on this evaluation, discussed with Radiology team to perform MRI and MRA Brain performed and no pathology, as we know he has Hypertension, Hyperlipidemia, DVT x 2 on Warfarin, TIA, Complete heart block status post pacemaker placement History of GI bleed, following systems software specialist recommendations. continue present care. Objective Vital Signs Date Time Temp Pulse Resp B/P (MAP) Pulse Ox O2 Delivery O2 Flow Rate FiO2 02/23/17 16:21 100 Simple Mask 6.00 02/23/17 12:00 97.7 60 17 109/55 (73) 99 02/23/17 10:01 98 Simple Mask 6.00 02/23/17 08:00 95.8 62 17 102/63 (76) 100 02/23/17 04:16 02/23/17 03:42 101.8 60 24 147/89 (108) 97 02/23/17 03:04 93 Nasal Cannula 3.00 02/23/17 02:36 94 Nasal Cannula 3.00 02/22/17 21:54 101.1 62 16 137/72 (93) 98 02/22/17 21:53 98 Nasal Cannula 2.00 I/O 02/22/17 02/22/17 02/22/17 02/23/17 02/23/17 02/23/17 07:00 15:00 23:00 07:00 15:00 23:00 Intake Total 926 ml 360 ml Balance 926 ml 360 ml Intake Oral 120 ml 360 ml IV Total 806 ml # Voids 4 3 # Bowel Movements 0 0 Result Diagram: 02/22/17 2305 02/23/17 0640 Imaging Last Impressions Head Magnetic Resonance Angiography 02/23/17 0000 Signed Impressions: Service Date/Time: Thursday, February 23, 2017 15:09 - CONCLUSION: 1. No evidence of proximal stenotic or occlusive disease. 2. No evidence of significant vasculopathy, aneurysm or vascular malformation. Abner Agarwal MD Brain MRI 02/23/17 0000 Signed Impressions: Service Date/Time: Thursday, February 23, 2017 15:09 - CONCLUSION: 1. Cortical atrophy. 2. No findings to indicate acute cortical infarction. Casey Hall MD CT Angiography 02/22/172108 Signed Impressions: Service Date/Time: Thursday, February 23, 2017 00:14 - CONCLUSION: 1. The study is negative for pulmonary embolism. 2. Bilateral pleural effusions, peripheral interstitial opacities, and mediastinal adenopathy. Mario Quinones MD Procedures None Other Results Laboratory Tests Test 02/22/17 23:05 02/23/17 06:40 02/23/17 14:15 White Blood Count 10.9 TH/MM3 Red Blood Count 3.65 MIL/MM3 Hemoglobin 11.5 GM/DL Hematocrit 34.4 % Mean Corpuscular Volume 94.2 FL Mean Corpuscular Hemoglobin 31.6 PG Mean Corpuscular Hemoglobin Concent 33.5 % Red Cell Distribution Width 14.9 % Platelet Count 136 TH/MM3 Mean Platelet Volume 9.1 FL Neutrophils (%) (Auto) 91.2 % Lymphocytes (%) (Auto) 2.0 % Monocytes (%) (Auto) 5.5 % Eosinophils (%) (Auto) 0.9 % Basophils (%) (Auto) 0.4 % Neutrophils # (Auto) 10.0 TH/MM3 Lymphocytes # (Auto) 0.2 TH/MM3 Monocytes # (Auto) 0.6 TH/MM3 Eosinophils # (Auto) 0.1 TH/MM3 Basophils # (Auto) 0.0 TH/MM3 CBC Comment DIFF FINAL Differential Comment Activated Partial Thromboplast Time 29.2 SEC Lactic Acid Level 1.4 mmol/L C-Reactive Protein 10.00 MG/DL B-Type Natriuretic Peptide 752 PG/ML Lipase 84 U/L Prothrombin Time 20.7 SEC Prothromb Time International Ratio 2.0 RATIO Blood Urea Nitrogen 26 MG/DL Creatinine 1.62 MG/DL Random Glucose 119 MG/DL Total Protein 6.1 GM/DL Albumin 2.5 GM/DL Calcium Level 7.6 MG/DL Alkaline Phosphatase 46 U/L Aspartate Amino Transf (AST/SGOT) 40 U/L Alanine Aminotransferase (ALT/SGPT) 47 U/L Total Bilirubin 0.5 MG/DL Sodium Level 136 MEQ/L Potassium Level 3.2 MEQ/L Chloride Level 104 MEQ/L Carbon Dioxide Level 24.2 MEQ/L Anion Gap 8 MEQ/L Estimat Glomerular Filtration Rate 41 ML/MIN Total Creatine Kinase 196 U/L Troponin I 0.06 NG/ML Objective Remarks GENERAL: Drowsy, male lying in bed SKIN: No rashes, ecchymoses or lesions. Cool and dry. HEAD: Atraumatic. Normocephalic. No temporal or scalp tenderness. EYES: Pupils equal round and reactive. Extraocular motions intact. No scleral icterus. No injection or drainage. ENT: Nose without bleeding, purulent drainage or septal hematoma. Throat without erythema, tonsillar hypertrophy or exudate. Uvula midline. Airway patent. NECK: Trachea midline. No JVD or lymphadenopathy. Supple, nontender, no meningeal signs. CARDIOVASCULAR: Regular rate and rhythm without murmurs, gallops, or rubs. RESPIRATORY: Bilateral crackles. Sparse wheezing. GASTROINTESTINAL: Abdomen soft, non-tender, nondistended. No hepato-splenomegaly , or palpable masses. No guarding. MUSCULOSKELETAL: Extremities without clubbing, cyanosis, or edema. No joint tenderness, effusion, or edema noted. No calf tenderness. NEUROLOGICAL: at this time somnolent but as per nurse states he was awake and alert before going to sleep. Medications and IVs Current Medications Medications (Trade) Dose Ordered Sig/Benito Route Start Time Stop Time Status Last Admin Azithromycin 500 mg/Sodium Chloride 250 ml @ 250 mls/hr Q24H IV 02/23/17 02:00 02/23/17 02:56 Ceftriaxone Sodium 1000 mg/ Sodium Chloride 100 ml @ 200 mls/hr Q24H IV 02/23/17 03:00 02/23/17 02:57 (NS Flush) 2 ml UNSCH PRN IV FLUSH 02/23/17 02:00 (NS Flush) 2 ml BID IV FLUSH 02/23/17 09:00 02/23/17 09:00 (Tylenol) 650 mg Q4H PRN PO 02/23/17 02:00 02/23/17 04:39 (Zofran Inj) 4 mg Q6H PRN IVP 02/23/17 02:00 (Narcan Inj) 0.4 mg UNSCH PRN IV PUSH 02/23/17 02:00 (Duoneb Neb) 1 ampule Q4HR NEB PRN NEB 02/23/17 02:00 (Duoneb Neb) 1 ampule Q6HR NEB NEB 02/23/17 04:00 02/23/17 16:21 Pharmacy Profile Note 0 ml @ 0 mls/hr UNSCH OTHER 02/23/17 02:00 (Heparin Inj) 5,000 units Q8HR SQ 02/23/17 06:00 02/23/17 14:22 (Ecotrin Ec) 81 mg DAILY PO 02/24/17 09:00 (Lipitor) 10 mg HS PO 02/23/17 21:00 (Vitamin D3) 1,000 units DAILY PO 02/24/17 09:00 (Proscar) 5 mg DAILY PO 02/24/17 09:00 (Ultram) 50 mg Q4H PRN PO 02/23/17 10:15 (Flomax) 0.4 mg DAILY PO 02/24/17 09:00 (Detrol La) 4 mg DAILY PO 02/24/17 09:00 A/P Assessment and Plan 1. Pneumonia, as per CTA showed peripheral interstitial opacities, Fever at home and on arrival to ER, No leukocytosis no lactic acidosis, continue Rocephin and Azithromycin, Legionella antigen and Pneumococcal antigen. follow blood cultures. 2. new Onset of Heart failure, patient has bilateral pleural effusions, BNP 752 , crackles on admission exam, Echocardiogram pending and systems software specialist consult. received Lasix x 1. 3. Encephalopathy probable metabolic at this time his MRA and MRI brain within normal limits no pathology found. and improving as per Nurse. 4. Urinary Incontinence has Urology specialist following as outpatient 5. CKD III at baseline 6. History of DVT on Warfarin INR 2 today. 7. Complete heart block status post Pacemaker placement last interrogation one week ago. Cardiology to follow. 8. Hypertension controlled 9. Hyperlipidemia to continue Home medicines 10. Electrolyte derangement replaced and following. DVT prophylaxis with Warfarin therapeutic at this time. Discharge Planning Once cleared by systems software specialist. Wilber Brantley MD Feb 23, 2017 17:11
[2017-02-23] MEDS: ATORVASTATIN 10 MG TAB PO SCH (21:37)
[2017-02-24] VITALS (17 sets, daily range): BP systolic 97–129; BP diastolic 54–68; PULSE 59–61; RESP 17–22; TEMP 96.9–100.8; O2SAT 94–100
[2017-02-24] MEDS: AZITHROMYCIN INJ 500 MG in SODIUM CHLOR 0.9% 250 ML INJ 250 ML IV SCH (01:55)
[2017-02-24] MEDS: cefTRIAXone INJ 1,000 MG in SODIUM CHLORIDE 0.9% INJ 100 ML IV SCH (01:57)
[2017-02-24] MEDS: RESP: ALBUTEROL 2.5 MG/IPRATROPIUM 0.5 MG NEB (SCH) NEB ×4 (04:01→21:26)
[2017-02-24] MEDS: HEPARIN SODIUM - SQ 10,000 UNITS/ML VIAL SQ SCH ×2 (06:01→13:30)
[2017-02-24 08:19] LABS: AUTOMATED NEUTROPHIL # 8.9 TH/MM3 (1.8-7.7); BASOPHIL % 0.3 % (0.0-2.0); EOSINOPHIL # 0.2 TH/MM3 (0-0.4); EOSINOPHIL % 2.2 % (0.0-4.0); HEMATOCRIT 31.9 % (39.0-51.0); HEMO FLAGS DIFF FINAL; LYMPH % 8.1 % (9.0-44.0); LYMPHOCYTE # 0.9 TH/MM3 (1.0-4.8); MEAN CORPUSCULAR HEMOGLOBIN 31.4 PG (27.0-34.0); MEAN CORPUSCULAR HGB CONC 33.4 % (32.0-36.0); MONO % 10.4 % (0.0-8.0); PLATELET COUNT 142 TH/MM3 (150-450); RED BLOOD COUNT 3.39 MIL/MM3 (4.50-5.90); RED CELL DISTRIBUTION WIDTH 15.3 % (11.6-17.2); WHITE BLOOD COUNT 11.3 TH/MM3 (4.0-11.0)
[2017-02-24 08:27] LABS: PROTHROMBIN TIME - PATIENT 20.3 SEC (9.8-11.6)
[2017-02-24 08:57] LABS: BICARBONATE 23.8 MEQ/L (21.0-32.0); MAGNESIUM 1.9 MG/DL (1.5-2.5); POTASSIUM 4.1 MEQ/L (3.5-5.1)
[2017-02-24] MEDS: ASPIRIN EC 81 MG TABEC PO SCH (09:59)
[2017-02-24] MEDS: TOLTERODINE TARTRATE 4 MG CAP LA PO SCH (09:59)
[2017-02-24] MEDS: FINASTERIDE 5 MG TAB PO SCH (09:59)
[2017-02-24] MEDS: TAMSULOSIN HCL 0.4 MG CAP PO SCH (09:59)
[2017-02-24] MEDS: CHOLECALCIFEROL (VIT D3) 1000 UNIT TAB PO SCH (09:59)
[2017-02-24] MEDS: SODIUM CHLORIDE 0.9% FLUSH 10 ML FLUSH IV FLUSH SCH ×2 (10:00→21:11)
[2017-02-24] MEDS: FUROSEMIDE 40 MG TAB PO SCH (11:15)
[2017-02-24] MEDS: MAGNESIUM OXIDE 400 MG TAB PO SCH (11:34)
[2017-02-24] MEDS ORDERED: SODIUM PHOSPHATE INJ 21 MMOL in SODIUM CHLORIDE 0.9% INJ 150 ML IV ONE (12:00)
--- NOTE | 2017-02-24 13:05 | HHI.PR ---
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 The patient was discharged from the hospital on 02/21 where he was treated for altered mental status and UTI. He was discharged to home after his mental status returned to baseline. The patient's reports that tonight he became altered again. She described them as weak, unable to pull himself up out of bed and states he was "out of it." He was also febrile to 101 at home. She called EMS who found his temperature to be 103. Patient has no history of CHF however his BNP is 752. CTA significant for bilateral pleural effusions, peripheral interstitial opacities and mediastinal adenopathy. 02/23: Patient admitted today he is a patient of Doctor Richard Velazquez, somnolent on this evaluation, discussed with Radiology team to perform MRI and MRA Brain performed and no pathology, as we know he has Hypertension, Hyperlipidemia, DVT x 2 on Warfarin, TIA, Complete heart block status post pacemaker placement History of GI bleed, following collateral specialist recommendations. continue present care. 02/24: Stable in his bedroom in sitting position, as per His in the room, the patient is non compliant at home with Diet and exercise, he does not want to perform any exercise, he was just recently discharged from this facility after that he has been worsening deconditioning, not yet seen by collateral specialist, Echocardiogram is not in EMR has controlled and low blood pressure, but he is asymptomatic. no nausea, vomit or diarrhea, as per Physical Therapy will need to go home on [facility]. Objective Vital Signs Date Time Temp Pulse Resp B/P (MAP) Pulse Ox O2 Delivery O2 Flow Rate FiO2 02/24/17 12:25 59 02/24/17 12:00 98.4 60 18 105/59 (74) 100 02/24/17 08:00 100.0 60 17 97/56 (70) 94 02/24/17 06:26 60 02/24/17 04:05 98 Simple Mask 6.00 02/24/17 04:00 100.8 61 22 118/54 (75) 98 02/24/17 00:00 99.9 59 22 129/68 (88) 98 02/23/17 20:13 98.5 58 19 108/69 (82) 100 02/23/17 16:21 100 Simple Mask 6.00 02/23/17 16:00 96.8 61 18 117/71 (86) 99 I/O 02/23/17 02/23/17 02/23/17 02/24/17 02/24/17 02/24/17 07:00 15:00 23:00 07:00 15:00 23:00 Intake Total 926 ml 360 ml 240 ml 1000 ml Output Total 600 ml Balance 926 ml 360 ml 240 ml 400 ml Intake Oral 120 ml 360 ml 240 ml 300 ml IV Total 806 ml 700 ml Output Urine Total 600 ml # Voids 4 3 2 # Bowel Movements 0 0 0 0 Result Diagram: 02/24/17 0746 02/24/17 0746 Imaging Last Impressions Head Magnetic Resonance Angiography 02/23/17 0000 Signed Impressions: Service Date/Time: Thursday, February 23, 2017 15:09 - CONCLUSION: 1. No evidence of proximal stenotic or occlusive disease. 2. No evidence of significant vasculopathy, aneurysm or vascular malformation. Abner Agarwal MD Brain MRI 02/23/17 0000 Signed Impressions: Service Date/Time: Thursday, February 23, 2017 15:09 - CONCLUSION: 1. Cortical atrophy. 2. No findings to indicate acute cortical infarction. Casey Hall MD CT Angiography 02/22/172108 Signed Impressions: Service Date/Time: Thursday, February 23, 2017 00:14 - CONCLUSION: 1. The study is negative for pulmonary embolism. 2. Bilateral pleural effusions, peripheral interstitial opacities, and mediastinal adenopathy. Mario Quinones MD Procedures None Other Results Laboratory Tests Test 02/22/17 23:05 02/23/17 06:40 02/23/17 14:15 02/24/17 07:46 Activated Partial Thromboplast Time 29.2 SEC Lactic Acid Level 1.4 mmol/L C-Reactive Protein 10.00 MG/DL B-Type Natriuretic Peptide 752 PG/ML Lipase 84 U/L Blood Urea Nitrogen 26 MG/DL 27 MG/DL Creatinine 1.62 MG/DL 1.45 MG/DL Random Glucose 119 MG/DL 102 MG/DL Total Protein 6.1 GM/DL Albumin 2.5 GM/DL Calcium Level 7.6 MG/DL 7.7 MG/DL Alkaline Phosphatase 46 U/L Aspartate Amino Transf (AST/SGOT) 40 U/L Alanine Aminotransferase (ALT/SGPT) 47 U/L Total Bilirubin 0.5 MG/DL Sodium Level 136 MEQ/L 135 MEQ/L Potassium Level 3.2 MEQ/L 4.1 MEQ/L Chloride Level 104 MEQ/L 103 MEQ/L Carbon Dioxide Level 24.2 MEQ/L 23.8 MEQ/L Total Creatine Kinase 196 U/L Troponin I 0.06 NG/ML White Blood Count 11.3 TH/MM3 Red Blood Count 3.39 MIL/MM3 Hemoglobin 10.6 GM/DL Hematocrit 31.9 % Mean Corpuscular Volume 94.0 FL Mean Corpuscular Hemoglobin 31.4 PG Mean Corpuscular Hemoglobin Concent 33.4 % Red Cell Distribution Width 15.3 % Platelet Count 142 TH/MM3 Mean Platelet Volume 9.3 FL Neutrophils (%) (Auto) 79.0 % Lymphocytes (%) (Auto) 8.1 % Monocytes (%) (Auto) 10.4 % Eosinophils (%) (Auto) 2.2 % Basophils (%) (Auto) 0.3 % Neutrophils # (Auto) 8.9 TH/MM3 Lymphocytes # (Auto) 0.9 TH/MM3 Monocytes # (Auto) 1.2 TH/MM3 Eosinophils # (Auto) 0.2 TH/MM3 Basophils # (Auto) 0.0 TH/MM3 CBC Comment DIFF FINAL Differential Comment Prothrombin Time 20.3 SEC Prothromb Time International Ratio 2.0 RATIO Phosphorus Level 1.6 MG/DL Magnesium Level 1.9 MG/DL Anion Gap 8 MEQ/L Estimat Glomerular Filtration Rate 46 ML/MIN Objective Remarks GENERAL: Alert and oriented x 3, no acute distress. SKIN: No rashes, ecchymoses or lesions. Cool and dry. HEAD: Atraumatic. Normocephalic. EYES: Pupils equal round and reactive. NECK: Trachea midline. No JVD or lymphadenopathy. Supple, nontender, no meningeal signs. CARDIOVASCULAR: Regular rate and rhythm without murmurs, gallops, or rubs. RESPIRATORY: Clear to auscultation bilateral, no wheezing or crackles. GASTROINTESTINAL: Abdomen soft, non-tender, nondistended. MUSCULOSKELETAL: Extremities without clubbing, cyanosis, or edema. NEUROLOGICAL: No focal deficits. Medications and IVs Current Medications Medications (Trade) Dose Ordered Sig/Benito Route Start Time Stop Time Status Last Admin Azithromycin 500 mg/Sodium Chloride 250 ml @ 250 mls/hr Q24H IV 02/23/17 02:00 02/24/17 01:55 (NS Flush) 2 ml UNSCH PRN IV FLUSH 02/23/17 02:00 (NS Flush) 2 ml BID IV FLUSH 02/23/17 09:00 02/24/17 10:00 (Tylenol) 650 mg Q4H PRN PO 02/23/17 02:00 02/23/17 04:39 (Zofran Inj) 4 mg Q6H PRN IVP 02/23/17 02:00 (Narcan Inj) 0.4 mg UNSCH PRN IV PUSH 02/23/17 02:00 (Duoneb Neb) 1 ampule Q4HR NEB PRN NEB 02/23/17 02:00 (Duoneb Neb) 1 ampule Q6HR NEB NEB 02/23/17 04:00 02/24/17 11:52 Pharmacy Profile Note 0 ml @ 0 mls/hr UNSCH OTHER 02/23/17 02:00 (Heparin Inj) 5,000 units Q8HR SQ 02/23/17 06:00 02/24/17 06:01 (Ecotrin Ec) 81 mg DAILY PO 02/24/17 09:00 02/24/17 09:59 (Lipitor) 10 mg HS PO 02/23/17 21:00 02/23/17 21:37 (Vitamin D3) 1,000 units DAILY PO 02/24/17 09:00 02/24/17 09:59 (Proscar) 5 mg DAILY PO 02/24/17 09:00 02/24/17 09:59 (Ultram) 50 mg Q4H PRN PO 02/23/17 10:15 (Flomax) 0.4 mg DAILY PO 02/24/17 09:00 02/24/17 09:59 (Detrol La) 4 mg DAILY PO 02/24/17 09:00 02/24/17 09:59 (Coumadin) 7.5 mg DAILY@1600 PO 02/24/17 16:00 Sodium Phosphate 21 mmol/Sodium Chloride 157 ml @ 38.75 mls/ hr ONCE ONCE IV 02/24/17 12:00 02/24/17 16:03 (Mag-Ox) 400 mg DAILY PO 02/24/17 11:00 02/24/17 11:34 Cefepime HCl 1000 mg/Sodium Chloride 100 ml @ 200 mls/hr Q12H IV 02/24/17 15:00 (Lasix) 40 mg DAILY PO 02/24/17 11:15 A/P Assessment and Plan 1. Pneumonia, as per CTA showed peripheral interstitial opacities, Fever at home and on arrival to ER, No leukocytosis no lactic acidosis, continue Rocephin and Azithromycin, Legionella antigen and Pneumococcal antigen. blood culture Negative in 48 hours, no Influenzae, had low grade fever 100.8 and 100 F in am today, switch to Cefepime and continue Azithromycin, follow CXR in am tomorrow. 2. new Onset of Heart failure, patient has bilateral pleural effusions, BNP 752 , crackles on admission exam, Echocardiogram pending and collateral specialist consult. received Lasix x 1. stable awaiting final by collateral specialist. 3. Encephalopathy Improved. probable metabolic at this time his MRA and MRI brain within normal limits no pathology found. 4. Urinary Incontinence has Urology specialist following as outpatient 5. CKD III at baseline and improving. 6. History of DVT on Warfarin INR 2 today. 7. Complete heart block status post Pacemaker placement last interrogation one week ago. Cardiology to follow. 8. Hypertension controlled 9. Hyperlipidemia to continue Home medicines 10. Electrolyte derangement replaced and following. Patient stable seen in his office discussed with patient, Nurse Miss Arguello and his Mrs. Oneil explained patient's condition, she states perhaps was told something in the past about her renal function, but states she does not remember showed the laboratory from this facility since 2014 with decreased renal function at this time at baseline, also she states her has medical non compliance, he takes a lot of salt with his food, do not follow a diet and does not like any exercise wants to be with low activity at home this will complicate his management. follow CXR in am tomorrow CBC final recommendations by Cardiology continue antibiotics switched to Cefepime and Azithromycin. DVT prophylaxis with Warfarin therapeutic at this time. Discharge Planning Once cleared by collateral specialist. Wilber Brantley MD Feb 24, 2017 13:05
[2017-02-24] MEDS: WARFARIN SOD 7.5 MG TAB PO SCH (16:04)
[2017-02-24] MEDS: CEFEPIME INJ 1,000 MG in SODIUM CHLORIDE 0.9% INJ 100 ML IV SCH (16:51)
--- NOTE | 2017-02-24 17:26 | ECHRPT ---
Indication: HEART FAILURE CONCLUSIONS Normal left ventricular size. Mild concentric left ventricular hypertrophy. The left ventricular systolic function is normal with an estimated ejection fraction in the range of 55-60%. The right ventricular size is normal. The left atrial size is moderately dilated. Mild thickening of the mitral valve leaflets. Mild mitral valve regurgitation. Severe mitral annular calcification. Mitral valve mean gradient is 3.5 mmHg. Mild mitral valve stenosis. BP: 147 / 89 HR: 60 Rhythm: MEASUREMENTS (Male / Female) Normal Values Technical Quality:Technically difficult study 2D ECHO LV Diastolic Diameter PLAX 4.1 cm 4.2 - 5.9 / 3.9 - 5.3 cm LV Systolic Diameter PLAX 3.1 cm IVS Diastolic Thickness 1.3 cm 0.6 - 1.0 / 0.6 - 0.9 cm LVPW Diastolic Thickness 0.8 cm 0.6 - 1.0 / 0.6 - 0.9 cm LV Relative Wall Thickness 0.5 RV Internal Dim ED PLAX 1.9 cm DOPPLER MV Peak Velocity 179.0 cm/s MV Peak Gradient 12.8 mmHg MV Mean Velocity 82.0 cm/s MV Mean Gradient 3.5 mmHg MV Area PHT 2.3 cm Mitral E Point Velocity 170.0 cm/s Mitral A Point Velocity 48.0 cm/s Mitral E to A Ratio 3.5 TR Peak Velocity 206.0 cm/s TR Peak Gradient 17.0 mmHg Right Atrial Pressure 10.0 mmHg Pulmonary Artery Systolic Pressu 27.0 mmHg Right Ventricular Systolic Press 27.0 mmHg FINDINGS LEFT VENTRICLE Normal left ventricular size. Mild concentric left ventricular hypertrophy. The left ventricular systolic function is normal with an estimated ejection fraction in the range of 55-60%. RIGHT VENTRICLE The right ventricular size is normal. LEFT ATRIUM The left atrial size is moderately dilated. RIGHT ATRIUM The right atrial size is normal. ATRIAL SEPTUM Normal atrial septal thickness without atrial level shunting by limited color doppler interrogation. AORTA The aortic root and proximal ascending aorta are normal in size on limited imaging. MITRAL VALVE Mild thickening of the mitral valve leaflets. Mild mitral valve regurgitation. Severe mitral annular calcification. Mitral valve mean gradient is 3.5 mmHg. Mild mitral valve stenosis. AORTIC VALVE Trileaflet aortic valve. No aortic valve stenosis or regurgitation. TRICUSPID VALVE Structurally normal tricuspid valve. No tricuspid valve stenosis or regurgitation. PULMONARY VALVE No pulmonary valve regurgitation or stenosis. VESSELS The inferior vena cava is normal in size. PERICARDIUM No pericardial effusion. Kenny Minor MD, FACC (Electronically Signed) Final Date:24 February 2017 17:25
[2017-02-24] MEDS: ATORVASTATIN 10 MG TAB PO SCH (21:10)
[2017-02-25] VITALS (8 sets, daily range): BP systolic 117–152; BP diastolic 68–76; PULSE 59–65; RESP 18–20; TEMP 97.2–98.7; O2SAT 96–97
[2017-02-25] MEDS: CEFEPIME INJ 1,000 MG in SODIUM CHLORIDE 0.9% INJ 100 ML IV SCH ×2 (02:44→15:00)
[2017-02-25] MEDS: AZITHROMYCIN INJ 500 MG in SODIUM CHLOR 0.9% 250 ML INJ 250 ML IV SCH (03:58)
[2017-02-25] MEDS: RESP: ALBUTEROL 2.5 MG/IPRATROPIUM 0.5 MG NEB (SCH) NEB ×4 (04:42→22:43)
[2017-02-25 06:23] LABS: AUTOMATED NEUTROPHIL # 5.9 TH/MM3 (1.8-7.7); BASOPHIL % 0.3 % (0.0-2.0); EOSINOPHIL # 0.6 TH/MM3 (0-0.4); EOSINOPHIL % 6.7 % (0.0-4.0); HEMATOCRIT 31.4 % (39.0-51.0); HEMO FLAGS DIFF FINAL; MEAN CELL VOLUME 94.2 FL (80.0-100.0); MEAN CORPUSCULAR HEMOGLOBIN 32.5 PG (27.0-34.0); MEAN CORPUSCULAR HGB CONC 34.5 % (32.0-36.0); MONO % 10.4 % (0.0-8.0); NEUT % 70.6 % (16.0-70.0); PLATELET COUNT 139 TH/MM3 (150-450); RED BLOOD COUNT 3.33 MIL/MM3 (4.50-5.90); RED CELL DISTRIBUTION WIDTH 15.6 % (11.6-17.2); WHITE BLOOD COUNT 8.4 TH/MM3 (4.0-11.0)
[2017-02-25 06:37] LABS: INTERNATIONAL NORMALIZED RATIO 1.8 RATIO; PROTHROMBIN TIME - PATIENT 18.7 SEC (9.8-11.6)
[2017-02-25 06:51] LABS: POTASSIUM 4.3 MEQ/L (3.5-5.1)
--- NOTE | 2017-02-25 08:57 | RADRPT ---
EXAM DATE/TIME: 02/25/2017 08:20 [facility] COMPARISON: CHEST SINGLE AP, February 20, 2017, 4:26. INDICATIONS : Shortness of breath. Pneumonia MEDICAL HISTORY : Hypertension. Diverticulosis. Deep venous thrombosis. SURGICAL HISTORY : Pacemaker. Cholecystectomy. Umbilical hernia repair. ENCOUNTER: Subsequent ACUITY: 4 - 6 days PAIN SCORE: 0/10 LOCATION: Bilateral chest FINDINGS: PA and lateral views of the chest demonstrate increased vascularity bilaterally with small pleural ef fusions. This suggests pulmonary venous congestion versus early edema. The heart size is mildly promi nent but stable. There is a pacemaker overlying the left chest. No significant changes are seen geo red to the prior examination.. CONCLUSION: Pulmonary venous congestion versus early edema.. Calin Rivera MD on February 25, 2017 at 8:53 Board Certified Radiologist. This report was verified electronically.
[2017-02-25] MEDS: TOLTERODINE TARTRATE 4 MG CAP LA PO SCH (09:00)
[2017-02-25] MEDS: SODIUM CHLORIDE 0.9% FLUSH 10 ML FLUSH IV FLUSH SCH ×2 (09:00→20:42)
[2017-02-25] MEDS: MAGNESIUM OXIDE 400 MG TAB PO SCH (09:10)
[2017-02-25] MEDS: CHOLECALCIFEROL (VIT D3) 1000 UNIT TAB PO SCH (09:13)
[2017-02-25] MEDS: FUROSEMIDE 40 MG TAB PO SCH (09:14)
[2017-02-25] MEDS: FINASTERIDE 5 MG TAB PO SCH (09:15)
[2017-02-25] MEDS: ASPIRIN EC 81 MG TABEC PO SCH (09:15)
[2017-02-25] MEDS: TAMSULOSIN HCL 0.4 MG CAP PO SCH (09:16)
[2017-02-25] MEDS ORDERED: MAGN400T2 PO (12:10)
[2017-02-25] MEDS ORDERED: CEFD300C PO (12:10)
[2017-02-25] MEDS ORDERED: FURO40TA PO (12:10)
[2017-02-25] MEDS ORDERED: AZIT500T2 PO (12:10)
[2017-02-25] MEDS ORDERED: SYMB160A INH (12:11)
[2017-02-25] MEDS ORDERED: POTA-163 PO (12:12)
--- NOTE | 2017-02-25 12:15 | HHI.FF ---
Face to Face Verification Diagnosis: (1) Leukocytosis (2) Altered mental status (3) Bilateral pneumonia Physical Therapy Order: Evaluate and Treat, Improve ambulation, Strength and gait training Home Health Nursing Order: Medical education Signs/symptoms of disease process CHF education Oxygen administration education Medication education-adverse effect Nursing assessment with vital signs I have seen patient Espinoza Kelly on 02/25/17. My clinical findings support the need for the requested home health care services because: Ltd mobility - disease progression I certify that my clinical findings support that this patient is homebound because: Unsafe to leave home unassisted Wilber Brantley MD Feb 25, 2017 12:15
--- NOTE | 2017-02-25 12:21 | HHI.PR ---
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 The patient was discharged from the hospital on 02/21 where he was treated for altered mental status and UTI. He was discharged to home after his mental status returned to baseline. The patient's reports that tonight he became altered again. She described them as weak, unable to pull himself up out of bed and states he was "out of it." He was also febrile to 101 at home. She called EMS who found his temperature to be 103. Patient has no history of CHF however his BNP is 752. CTA significant for bilateral pleural effusions, peripheral interstitial opacities and mediastinal adenopathy. 02/23: Patient admitted today he is a patient of Doctor Richard Velazquez, somnolent on this evaluation, discussed with Radiology team to perform MRI and MRA Brain performed and no pathology, as we know he has Hypertension, Hyperlipidemia, DVT x 2 on Warfarin, TIA, Complete heart block status post pacemaker placement History of GI bleed, following provider relations specialist recommendations. continue present care. 02/24: Stable in his bedroom in sitting position, as per His in the room, the patient is non compliant at home with Diet and exercise, he does not want to perform any exercise, he was just recently discharged from this facility after that he has been worsening deconditioning, not yet seen by provider relations specialist, Echocardiogram is not in EMR has controlled and low blood pressure, but he is asymptomatic. no nausea, vomit or diarrhea, as per Physical Therapy will need to go home on [facility]. 02/25: Seen in his bedroom stable in the presence of his , he has no fever, received antibiotics today, will need to continue antibiotics by mouth, discussed with his , he will need to abstain from Salt consumption, increased his exercise level, eat healthier, take his medicines and follow with his PCP, will give antibiotics for Omnicef and Azithromycin on discharge, blood cultures negative, inhaler on discharge. not yet seen by provider relations specialist will follow recommendations for discharge. Objective Vital Signs Date Time Temp Pulse Resp B/P (MAP) Pulse Ox O2 Delivery O2 Flow Rate FiO2 02/25/17 11:06 96 Nasal Cannula 21 02/25/17 09:55 Nasal Cannula 2.00 02/25/17 08:00 98.7 60 18 133/70 (91) 97 02/25/17 04:44 96 Nasal Cannula 2.00 02/25/17 00:00 97.8 60 20 117/68 (84) 96 02/24/17 23:36 59 02/24/17 22:57 59 02/24/17 22:39 Nasal Cannula 2.00 02/24/17 21:43 98.7 60 18 112/64 (80) 99 02/24/17 17:17 59 02/24/17 16:22 98 Nasal Cannula 2.00 02/24/17 16:00 96.9 60 18 101/58 (72) 98 02/24/17 15:17 60 02/24/17 14:14 99 Nasal Cannula 3.00 02/24/17 12:25 59 02/24/17 12:17 99 Nasal Cannula 4.00 I/O 02/24/17 02/24/17 02/24/17 02/25/17 02/25/17 02/25/17 07:00 15:00 23:00 07:00 15:00 23:00 Intake Total 1000 ml 621 ml 369 ml 400 ml Output Total 600 ml 200 ml 600 ml Balance 400 ml 421 ml 369 ml -200 ml Intake Oral 300 ml 600 ml 240 ml 300 ml IV Total 700 ml 21 ml 129 ml 100 ml Output Urine Total 600 ml 200 ml 600 ml # Voids 1 1 # Bowel Movements 0 0 0 0 Result Diagram: 02/25/17 0556 02/25/17 0556 Imaging Last Impressions Chest X-Ray 02/25/17 0700 Signed Impressions: Service Date/Time: Saturday, February 25, 2017 08:20 - CONCLUSION: Pulmonary venous congestion versus early edema.. Calin Rivera MD Head Magnetic Resonance Angiography 02/23/17 0000 Signed Impressions: Service Date/Time: Thursday, February 23, 2017 15:09 - CONCLUSION: 1. No evidence of proximal stenotic or occlusive disease. 2. No evidence of significant vasculopathy, aneurysm or vascular malformation. Abner Agarwal MD Brain MRI 02/23/17 0000 Signed Impressions: Service Date/Time: Thursday, February 23, 2017 15:09 - CONCLUSION: 1. Cortical atrophy. 2. No findings to indicate acute cortical infarction. Casey Hall MD CT Angiography 02/22/172108 Signed Impressions: Service Date/Time: Thursday, February 23, 2017 00:14 - CONCLUSION: 1. The study is negative for pulmonary embolism. 2. Bilateral pleural effusions, peripheral interstitial opacities, and mediastinal adenopathy. Mario Quinones MD Procedures None Other Results Laboratory Tests Test 02/22/17 23:05 02/23/17 06:40 02/23/17 14:15 02/24/17 07:46 Activated Partial Thromboplast Time 29.2 SEC Lactic Acid Level 1.4 mmol/L C-Reactive Protein 10.00 MG/DL B-Type Natriuretic Peptide 752 PG/ML Lipase 84 U/L Blood Urea Nitrogen 26 MG/DL 27 MG/DL Creatinine 1.62 MG/DL 1.45 MG/DL Random Glucose 119 MG/DL 102 MG/DL Total Protein 6.1 GM/DL Albumin 2.5 GM/DL Calcium Level 7.6 MG/DL 7.7 MG/DL Alkaline Phosphatase 46 U/L Aspartate Amino Transf (AST/SGOT) 40 U/L Alanine Aminotransferase (ALT/SGPT) 47 U/L Total Bilirubin 0.5 MG/DL Sodium Level 136 MEQ/L 135 MEQ/L Potassium Level 3.2 MEQ/L 4.1 MEQ/L Chloride Level 104 MEQ/L 103 MEQ/L Carbon Dioxide Level 24.2 MEQ/L 23.8 MEQ/L Total Creatine Kinase 196 U/L Troponin I 0.06 NG/ML Phosphorus Level 1.6 MG/DL Magnesium Level 1.9 MG/DL Test 02/25/17 05:56 White Blood Count 8.4 TH/MM3 Red Blood Count 3.33 MIL/MM3 Hemoglobin 10.8 GM/DL Hematocrit 31.4 % Mean Corpuscular Volume 94.2 FL Mean Corpuscular Hemoglobin 32.5 PG Mean Corpuscular Hemoglobin Concent 34.5 % Red Cell Distribution Width 15.6 % Platelet Count 139 TH/MM3 Mean Platelet Volume 9.4 FL Neutrophils (%) (Auto) 70.6 % Lymphocytes (%) (Auto) 12.0 % Monocytes (%) (Auto) 10.4 % Eosinophils (%) (Auto) 6.7 % Basophils (%) (Auto) 0.3 % Neutrophils # (Auto) 5.9 TH/MM3 Lymphocytes # (Auto) 1.0 TH/MM3 Monocytes # (Auto) 0.9 TH/MM3 Eosinophils # (Auto) 0.6 TH/MM3 Basophils # (Auto) 0.0 TH/MM3 CBC Comment DIFF FINAL Differential Comment Prothrombin Time 18.7 SEC Prothromb Time International Ratio 1.8 RATIO Blood Urea Nitrogen 30 MG/DL Creatinine 1.43 MG/DL Random Glucose 97 MG/DL Calcium Level 8.4 MG/DL Magnesium Level 2.0 MG/DL Sodium Level 137 MEQ/L Potassium Level 4.3 MEQ/L Chloride Level 106 MEQ/L Carbon Dioxide Level 25.0 MEQ/L Anion Gap 6 MEQ/L Estimat Glomerular Filtration Rate 47 ML/MIN Objective Remarks GENERAL: Alert and oriented x 3, no acute distress. SKIN: No rashes, ecchymoses or lesions. Cool and dry. HEAD: Atraumatic. Normocephalic. EYES: Pupils equal round and reactive. NECK: Trachea midline. No JVD or lymphadenopathy. Supple, nontender, no meningeal signs. CARDIOVASCULAR: Regular rate and rhythm without murmurs, gallops, or rubs. RESPIRATORY: Clear to auscultation bilateral, no wheezing or crackles. GASTROINTESTINAL: Abdomen soft, non-tender, nondistended. MUSCULOSKELETAL: Extremities without clubbing, cyanosis, or edema. NEUROLOGICAL: No focal deficits. Medications and IVs Current Medications Medications (Trade) Dose Ordered Sig/Benito Route Start Time Stop Time Status Last Admin Azithromycin 500 mg/Sodium Chloride 250 ml @ 250 mls/hr Q24H IV 02/23/17 02:00 02/25/17 03:58 (NS Flush) 2 ml UNSCH PRN IV FLUSH 02/23/17 02:00 (NS Flush) 2 ml BID IV FLUSH 02/23/17 09:00 02/25/17 09:00 (Tylenol) 650 mg Q4H PRN PO 02/23/17 02:00 02/23/17 04:39 (Zofran Inj) 4 mg Q6H PRN IVP 02/23/17 02:00 (Narcan Inj) 0.4 mg UNSCH PRN IV PUSH 02/23/17 02:00 (Duoneb Neb) 1 ampule Q4HR NEB PRN NEB 02/23/17 02:00 (Duoneb Neb) 1 ampule Q6HR NEB NEB 02/23/17 04:00 02/25/17 11:06 Pharmacy Profile Note 0 ml @ 0 mls/hr UNSCH OTHER 02/23/17 02:00 (Ecotrin Ec) 81 mg DAILY PO 02/24/17 09:00 02/25/17 09:15 (Lipitor) 10 mg HS PO 02/23/17 21:00 02/24/17 21:10 (Vitamin D3) 1,000 units DAILY PO 02/24/17 09:00 02/25/17 09:13 (Proscar) 5 mg DAILY PO 02/24/17 09:00 02/25/17 09:15 (Ultram) 50 mg Q4H PRN PO 02/23/17 10:15 (Flomax) 0.4 mg DAILY PO 02/24/17 09:00 02/25/17 09:16 (Detrol La) 4 mg DAILY PO 02/24/17 09:00 02/24/17 09:59 (Coumadin) 7.5 mg DAILY@1600 PO 02/24/17 16:00 02/24/17 16:04 (Mag-Ox) 400 mg DAILY PO 02/24/17 11:00 02/25/17 09:10 Cefepime HCl 1000 mg/Sodium Chloride 100 ml @ 200 mls/hr Q12H IV 02/24/17 15:00 02/25/17 02:44 (Lasix) 40 mg DAILY PO 02/24/17 11:15 02/25/17 09:14 A/P Assessment and Plan 1. Pneumonia, as per CTA showed peripheral interstitial opacities, Fever at home and on arrival to ER, No leukocytosis no lactic acidosis, continue Rocephin and Azithromycin, Legionella antigen and Pneumococcal antigen. blood culture negative, CXR showing vascular congestion, will switch to Cefdinir and Azithromycin on discharge. 2. new Onset of Heart failure, patient has bilateral pleural effusions, BNP 752 , crackles on admission exam, Echocardiogram pending and provider relations specialist consult. received Lasix x 1. stable awaiting final by provider relations specialist. 3. Encephalopathy Improved. probable metabolic at this time his MRA and MRI brain within normal limits no pathology found. 4. Urinary Incontinence has Urology specialist following as outpatient 5. CKD III at baseline and improving. 6. History of DVT on Warfarin INR 1.8 today. 7. Complete heart block status post Pacemaker placement last interrogation one week ago. Cardiology to follow. 8. Hypertension controlled 9. Hyperlipidemia to continue Home medicines 10. Electrolyte derangement replaced and following. Seen in his bedroom in the presence of his Nurse Mr. Gutierrez try to discharge home but not yet seen by Cardiology follow CXR in am tomorrow CBC final recommendations by Cardiology continue antibiotics Cefepime and Azithromycin until cleared by provider relations specialist. DVT prophylaxis with Warfarin therapeutic at this time. Discharge Planning Once cleared by provider relations specialist. Wilber Brantley MD Feb 25, 2017 12:21
[2017-02-25] MEDS: WARFARIN SOD 7.5 MG TAB PO SCH (17:43)
[2017-02-25] MEDS: ATORVASTATIN 10 MG TAB PO SCH (20:42)
[2017-02-26] VITALS (11 sets, daily range): BP systolic 120–139; BP diastolic 70–76; PULSE 58–62; RESP 17–20; TEMP 96.8–98.2; O2SAT 96–98
[2017-02-26] MEDS: AZITHROMYCIN INJ 500 MG in SODIUM CHLOR 0.9% 250 ML INJ 250 ML IV SCH (00:53)
[2017-02-26] MEDS: CEFEPIME INJ 1,000 MG in SODIUM CHLORIDE 0.9% INJ 100 ML IV SCH ×2 (02:25→16:12)
[2017-02-26] MEDS: RESP: ALBUTEROL 2.5 MG/IPRATROPIUM 0.5 MG NEB (SCH) NEB ×4 (03:21→22:41)
[2017-02-26 04:59] LABS: INTERNATIONAL NORMALIZED RATIO 1.9 RATIO; PROTHROMBIN TIME - PATIENT 18.8 SEC (9.8-11.6)
[2017-02-26] MEDS: ASPIRIN EC 81 MG TABEC PO SCH (08:17)
[2017-02-26] MEDS: MAGNESIUM OXIDE 400 MG TAB PO SCH (08:17)
[2017-02-26] MEDS: TOLTERODINE TARTRATE 4 MG CAP LA PO SCH (08:17)
[2017-02-26] MEDS: SODIUM CHLORIDE 0.9% FLUSH 10 ML FLUSH IV FLUSH SCH ×2 (08:18→21:29)
[2017-02-26] MEDS: FUROSEMIDE 40 MG TAB PO SCH (08:18)
[2017-02-26] MEDS: TAMSULOSIN HCL 0.4 MG CAP PO SCH (08:18)
[2017-02-26] MEDS: CHOLECALCIFEROL (VIT D3) 1000 UNIT TAB PO SCH (08:18)
[2017-02-26] MEDS: FINASTERIDE 5 MG TAB PO SCH (08:18)
[2017-02-26] MEDS ORDERED: OXYGENTANK NAS.CANULA (09:01)
--- NOTE | 2017-02-26 09:04 | HHI.PR ---
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 The patient was discharged from the hospital on 02/21 where he was treated for altered mental status and UTI. He was discharged to home after his mental status returned to baseline. The patient's reports that tonight he became altered again. She described them as weak, unable to pull himself up out of bed and states he was "out of it." He was also febrile to 101 at home. She called EMS who found his temperature to be 103. Patient has no history of CHF however his BNP is 752. CTA significant for bilateral pleural effusions, peripheral interstitial opacities and mediastinal adenopathy. 02/23: Patient admitted today he is a patient of Doctor Richard Velazquez, somnolent on this evaluation, discussed with Radiology team to perform MRI and MRA Brain performed and no pathology, as we know he has Hypertension, Hyperlipidemia, DVT x 2 on Warfarin, TIA, Complete heart block status post pacemaker placement History of GI bleed, following deployment specialist recommendations. continue present care. 02/24: Stable in his bedroom in sitting position, as per His in the room, the patient is non compliant at home with Diet and exercise, he does not want to perform any exercise, he was just recently discharged from this facility after that he has been worsening deconditioning, not yet seen by deployment specialist, Echocardiogram is not in EMR has controlled and low blood pressure, but he is asymptomatic. no nausea, vomit or diarrhea, as per Physical Therapy will need to go home on [facility]. 02/25: Seen in his bedroom stable in the presence of his , he has no fever, received antibiotics today, will need to continue antibiotics by mouth, discussed with his , he will need to abstain from Salt consumption, increased his exercise level, eat healthier, take his medicines and follow with his PCP, will give antibiotics for Omnicef and Azithromycin on discharge, blood cultures negative, inhaler on discharge. not yet seen by deployment specialist will follow recommendations for discharge. 02/26: Stable in his bedroom, okay to discharge home as per deployment specialist, also failed Walk test will need to go home on Oxygen tank two liters per min, discussed in the room with patient and his also with reliability manager he will go home today on [facility] for PT and Skilled nurse for oxygen management, continue antibiotics by mouth. Objective Vital Signs Date Time Temp Pulse Resp B/P (MAP) Pulse Ox O2 Delivery O2 Flow Rate FiO2 02/26/17 08:49 97 Nasal Cannula 2.00 02/26/17 07:47 96 Nasal Cannula 2.00 02/26/17 04:00 59 02/26/17 04:00 98.2 60 20 123/70 (87) 96 02/26/17 03:21 96 Nasal Cannula 2.00 02/26/17 00:04 59 02/26/17 00:00 97.8 60 20 124/73 (90) 97 02/25/17 20:42 95 Nasal Cannula 2.00 02/25/17 20:42 59 02/25/17 20:00 97.7 60 20 133/70 (91) 97 02/25/17 16:00 97.2 65 18 147/76 (99) 97 02/25/17 13:40 3.00 02/25/17 12:00 97.2 61 18 152/69 (96) 97 02/25/17 11:06 96 Nasal Cannula 21 02/25/17 09:55 Nasal Cannula 2.00 I/O 02/25/17 02/25/17 02/25/17 02/26/17 02/26/17 02/26/17 07:00 15:00 23:00 07:00 15:00 23:00 Intake Total 400 ml 480 ml 590 ml Output Total 600 ml Balance -200 ml 480 ml 590 ml Intake Oral 300 ml 480 ml 240 ml IV Total 100 ml 350 ml Output Urine Total 600 ml # Voids 4 4 # Bowel Movements 0 Result Diagram: 02/25/17 0556 02/25/17 0556 Imaging Last Impressions Chest X-Ray 02/25/17 0700 Signed Impressions: Service Date/Time: Saturday, February 25, 2017 08:20 - CONCLUSION: Pulmonary venous congestion versus early edema.. Calin Rivera MD Head Magnetic Resonance Angiography 02/23/17 0000 Signed Impressions: Service Date/Time: Thursday, February 23, 2017 15:09 - CONCLUSION: 1. No evidence of proximal stenotic or occlusive disease. 2. No evidence of significant vasculopathy, aneurysm or vascular malformation. Abner Agarwal MD Brain MRI 02/23/17 0000 Signed Impressions: Service Date/Time: Thursday, February 23, 2017 15:09 - CONCLUSION: 1. Cortical atrophy. 2. No findings to indicate acute cortical infarction. Casey Hall MD CT Angiography 02/22/172108 Signed Impressions: Service Date/Time: Thursday, February 23, 2017 00:14 - CONCLUSION: 1. The study is negative for pulmonary embolism. 2. Bilateral pleural effusions, peripheral interstitial opacities, and mediastinal adenopathy. Mario Quinones MD Procedures None Other Results Laboratory Tests Test 02/22/17 23:05 02/23/17 06:40 02/23/17 14:15 02/24/17 07:46 Activated Partial Thromboplast Time 29.2 SEC Lactic Acid Level 1.4 mmol/L C-Reactive Protein 10.00 MG/DL B-Type Natriuretic Peptide 752 PG/ML Lipase 84 U/L Blood Urea Nitrogen 26 MG/DL 27 MG/DL Creatinine 1.62 MG/DL 1.45 MG/DL Random Glucose 119 MG/DL 102 MG/DL Total Protein 6.1 GM/DL Albumin 2.5 GM/DL Calcium Level 7.6 MG/DL 7.7 MG/DL Alkaline Phosphatase 46 U/L Aspartate Amino Transf (AST/SGOT) 40 U/L Alanine Aminotransferase (ALT/SGPT) 47 U/L Total Bilirubin 0.5 MG/DL Sodium Level 136 MEQ/L 135 MEQ/L Potassium Level 3.2 MEQ/L 4.1 MEQ/L Chloride Level 104 MEQ/L 103 MEQ/L Carbon Dioxide Level 24.2 MEQ/L 23.8 MEQ/L Total Creatine Kinase 196 U/L Troponin I 0.06 NG/ML Phosphorus Level 1.6 MG/DL Magnesium Level 1.9 MG/DL Test 02/25/17 05:56 02/26/17 04:01 White Blood Count 8.4 TH/MM3 Red Blood Count 3.33 MIL/MM3 Hemoglobin 10.8 GM/DL Hematocrit 31.4 % Mean Corpuscular Volume 94.2 FL Mean Corpuscular Hemoglobin 32.5 PG Mean Corpuscular Hemoglobin Concent 34.5 % Red Cell Distribution Width 15.6 % Platelet Count 139 TH/MM3 Mean Platelet Volume 9.4 FL Neutrophils (%) (Auto) 70.6 % Lymphocytes (%) (Auto) 12.0 % Monocytes (%) (Auto) 10.4 % Eosinophils (%) (Auto) 6.7 % Basophils (%) (Auto) 0.3 % Neutrophils # (Auto) 5.9 TH/MM3 Lymphocytes # (Auto) 1.0 TH/MM3 Monocytes # (Auto) 0.9 TH/MM3 Eosinophils # (Auto) 0.6 TH/MM3 Basophils # (Auto) 0.0 TH/MM3 CBC Comment DIFF FINAL Differential Comment Blood Urea Nitrogen 30 MG/DL Creatinine 1.43 MG/DL Random Glucose 97 MG/DL Calcium Level 8.4 MG/DL Magnesium Level 2.0 MG/DL Sodium Level 137 MEQ/L Potassium Level 4.3 MEQ/L Chloride Level 106 MEQ/L Carbon Dioxide Level 25.0 MEQ/L Anion Gap 6 MEQ/L Estimat Glomerular Filtration Rate 47 ML/MIN Prothrombin Time 18.8 SEC Prothromb Time International Ratio 1.9 RATIO Objective Remarks GENERAL: Alert and oriented x 3, no acute distress. SKIN: No rashes, ecchymoses or lesions. Cool and dry. HEAD: Atraumatic. Normocephalic. EYES: Pupils equal round and reactive. NECK: Trachea midline. No JVD or lymphadenopathy. Supple, nontender, no meningeal signs. CARDIOVASCULAR: Regular rate and rhythm without murmurs, gallops, or rubs. RESPIRATORY: Clear to auscultation bilateral, no wheezing or crackles. GASTROINTESTINAL: Abdomen soft, non-tender, nondistended. MUSCULOSKELETAL: Extremities without clubbing, cyanosis, or edema. NEUROLOGICAL: No focal deficits. Medications and IVs Current Medications Medications (Trade) Dose Ordered Sig/Benito Route Start Time Stop Time Status Last Admin Azithromycin 500 mg/Sodium Chloride 250 ml @ 250 mls/hr Q24H IV 02/23/17 02:00 02/26/17 00:53 (NS Flush) 2 ml UNSCH PRN IV FLUSH 02/23/17 02:00 (NS Flush) 2 ml BID IV FLUSH 02/23/17 09:00 02/26/17 08:18 (Tylenol) 650 mg Q4H PRN PO 02/23/17 02:00 02/23/17 04:39 (Zofran Inj) 4 mg Q6H PRN IVP 02/23/17 02:00 (Narcan Inj) 0.4 mg UNSCH PRN IV PUSH 02/23/17 02:00 (Duoneb Neb) 1 ampule Q4HR NEB PRN NEB 02/23/17 02:00 (Duoneb Neb) 1 ampule Q6HR NEB NEB 02/23/17 04:00 02/26/17 07:46 Pharmacy Profile Note 0 ml @ 0 mls/hr UNSCH OTHER 02/23/17 02:00 (Ecotrin Ec) 81 mg DAILY PO 02/24/17 09:00 02/26/17 08:17 (Lipitor) 10 mg HS PO 02/23/17 21:00 02/25/17 20:42 (Vitamin D3) 1,000 units DAILY PO 02/24/17 09:00 02/26/17 08:18 (Proscar) 5 mg DAILY PO 02/24/17 09:00 02/26/17 08:18 (Ultram) 50 mg Q4H PRN PO 02/23/17 10:15 (Flomax) 0.4 mg DAILY PO 02/24/17 09:00 02/26/17 08:18 (Detrol La) 4 mg DAILY PO 02/24/17 09:00 02/26/17 08:17 (Coumadin) 7.5 mg DAILY@1600 PO 02/24/17 16:00 02/25/17 17:43 (Mag-Ox) 400 mg DAILY PO 02/24/17 11:00 02/26/17 08:17 Cefepime HCl 1000 mg/Sodium Chloride 100 ml @ 200 mls/hr Q12H IV 02/24/17 15:00 02/26/17 02:25 (Lasix) 40 mg DAILY PO 02/24/17 11:15 02/26/17 08:18 A/P Assessment and Plan 1. Pneumonia, as per CTA showed peripheral interstitial opacities, Fever at home and on arrival to ER, No leukocytosis no lactic acidosis, continue Rocephin and Azithromycin, Legionella antigen and Pneumococcal antigen. blood culture negative, CXR showing vascular congestion, will switch to Cefdinir and Azithromycin on discharge. 2. Acute Heart failure with preserved Ejection Fraction Echocardiogram showing EF 55-60%, Patient has bilateral pleural effusions, BNP 752, crackles on admission, at this time stable, improving general condition but failed walk test. 3. Encephalopathy Improved. probable metabolic at this time his MRA and MRI brain within normal limits no pathology found. 4. Urinary Incontinence has Urology specialist following as outpatient 5. CKD III at baseline and improving. 6. History of DVT on Warfarin INR 1.8 today. 7. Complete heart block status post Pacemaker placement last interrogation one week ago. Cardiology to follow. 8. Hypertension controlled 9. Hyperlipidemia to continue Home medicines 10. Electrolyte derangement replaced 11. Respiratory insufficiency probable related to recent Cardiac condition having Heart failure with preserved Ejection fraction as acute, failed walk test will go home on Oxygen 2L/min Seen in his bedroom in the presence of his Nurse Mr. Gutierrez try to discharge home but not yet seen by Cardiology okay to discharge from deployment specialist standpoint. DVT prophylaxis with Warfarin therapeutic at this time. Discharge Planning Discharge Home on [facility]. Wilber Brantley MD Feb 26, 2017 9:04 am
--- NOTE | 2017-02-26 09:06 | HHI.DS ---
Discharge Summary Admission Date Feb 23, 2017 at 01:01 Discharge Date: Feb 26, 2017 Admitting Diagnosis Pneumonia, AMS, Fever (1) Leukocytosis ICD Code: D72.829 - Elevated white blood cell count, unspecified Diagnosis: Principal (2) Altered mental status ICD Code: R41.82 - Altered mental status, unspecified Diagnosis: Principal Status: Acute (3) Bilateral pneumonia ICD Code: J18.9 - Pneumonia, unspecified organism Diagnosis: Principal Status: Acute (4) Respiratory insufficiency ICD Code: R06.89 - Other abnormalities of breathing Diagnosis: Principal Procedures None Brief History - From Admission 81-year-old male with a past medical history significant for 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 The patient was discharged from the hospital on 02/21 where he was treated for altered mental status and UTI. He was discharged to home after his mental status returned to baseline. The patient's reports that tonight he became altered again. She described them as weak, unable to pull himself up out of bed and states he was "out of it." He was also febrile to 101 at home. She called EMS who found his temperature to be 103. Patient has no history of CHF however his BNP is 752. CTA significant for bilateral pleural effusions, peripheral interstitial opacities and mediastinal adenopathy. CBC/BMP: 02/25/17 0556 02/25/17 0556 Significant Findings Laboratory Tests Test 02/23/17 14:15 02/24/17 07:46 02/25/17 05:56 02/26/17 04:01 Troponin I 0.06 NG/ML (0.02-0.05) White Blood Count 11.3 TH/MM3 (4.0-11.0) Red Blood Count 3.39 MIL/MM3 (4.50-5.90) 3.33 MIL/MM3 (4.50-5.90) Hemoglobin 10.6 GM/DL (13.0-17.0) 10.8 GM/DL (13.0-17.0) Hematocrit 31.9 % (39.0-51.0) 31.4 % (39.0-51.0) Platelet Count 142 TH/MM3 (150-450) 139 TH/MM3 (150-450) Neutrophils (%) (Auto) 79.0 % (16.0-70.0) 70.6 % (16.0-70.0) Lymphocytes (%) (Auto) 8.1 % (9.0-44.0) Monocytes (%) (Auto) 10.4 % (0.0-8.0) 10.4 % (0.0-8.0) Neutrophils # (Auto) 8.9 TH/MM3 (1.8-7.7) Lymphocytes # (Auto) 0.9 TH/MM3 (1.0-4.8) Monocytes # (Auto) 1.2 TH/MM3 (0-0.9) Prothrombin Time 20.3 SEC (9.8-11.6) 18.7 SEC (9.8-11.6) 18.8 SEC (9.8-11.6) Blood Urea Nitrogen 27 MG/DL (7-18) 30 MG/DL (7-18) Creatinine 1.45 MG/DL (0.60-1.30) 1.43 MG/DL (0.60-1.30) Calcium Level 7.7 MG/DL (8.5-10.1) 8.4 MG/DL (8.5-10.1) Phosphorus Level 1.6 MG/DL (2.5-4.9) Sodium Level 135 MEQ/L (136-145) Estimat Glomerular Filtration Rate 46 ML/MIN (>89) 47 ML/MIN (>89) Eosinophils (%) (Auto) 6.7 % (0.0-4.0) Eosinophils # (Auto) 0.6 TH/MM3 (0-0.4) Imaging Last Impressions Chest X-Ray 02/25/17 0700 Signed Impressions: Service Date/Time: Saturday, February 25, 2017 08:20 - CONCLUSION: Pulmonary venous congestion versus early edema.. Calin Rivera MD Head Magnetic Resonance Angiography 02/23/17 0000 Signed Impressions: Service Date/Time: Thursday, February 23, 2017 15:09 - CONCLUSION: 1. No evidence of proximal stenotic or occlusive disease. 2. No evidence of significant vasculopathy, aneurysm or vascular malformation. Abner Agarwal MD Brain MRI 02/23/17 0000 Signed Impressions: Service Date/Time: Thursday, February 23, 2017 15:09 - CONCLUSION: 1. Cortical atrophy. 2. No findings to indicate acute cortical infarction. Casey Hall MD CT Angiography 02/22/17 2109 Signed Impressions: Service Date/Time: Thursday, February 23, 2017 00:14 - CONCLUSION: 1. The study is negative for pulmonary embolism. 2. Bilateral pleural effusions, peripheral interstitial opacities, and mediastinal adenopathy. Mario Quinones MD PE at Discharge GENERAL: Alert and oriented x 3, no acute distress. SKIN: No rashes, ecchymoses or lesions. Cool and dry. HEAD: Atraumatic. Normocephalic. EYES: Pupils equal round and reactive. NECK: Trachea midline. No JVD or lymphadenopathy. Supple, nontender, no meningeal signs. CARDIOVASCULAR: Regular rate and rhythm without murmurs, gallops, or rubs. RESPIRATORY: Clear to auscultation bilateral, no wheezing or crackles. GASTROINTESTINAL: Abdomen soft, non-tender, nondistended. MUSCULOSKELETAL: Extremities without clubbing, cyanosis, or edema. NEUROLOGICAL: No focal deficits. 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 The patient was discharged from the hospital on 02/21 where he was treated for altered mental status and UTI. He was discharged to home after his mental status returned to baseline. The patient's reports that tonight he became altered again. She described them as weak, unable to pull himself up out of bed and states he was "out of it." He was also febrile to 101 at home. She called EMS who found his temperature to be 103. Patient has no history of CHF however his BNP is 752. CTA significant for bilateral pleural effusions, peripheral interstitial opacities and mediastinal adenopathy. 02/23: Patient admitted today he is a patient of Doctor Richard Velazquez, somnolent on this evaluation, discussed with Radiology team to perform MRI and MRA Brain performed and no pathology, as we know he has Hypertension, Hyperlipidemia, DVT x 2 on Warfarin, TIA, Complete heart block status post pacemaker placement History of GI bleed, following client retention specialist recommendations. continue present care. 02/24: Stable in his bedroom in sitting position, as per His in the room, the patient is non compliant at home with Diet and exercise, he does not want to perform any exercise, he was just recently discharged from this facility after that he has been worsening deconditioning, not yet seen by client retention specialist, Echocardiogram is not in EMR has controlled and low blood pressure, but he is asymptomatic. no nausea, vomit or diarrhea, as per Physical Therapy will need to go home on HHC. 02/25: Seen in his bedroom stable in the presence of his , he has no fever, received antibiotics today, will need to continue antibiotics by mouth, discussed with his , he will need to abstain from Salt consumption, increased his exercise level, eat healthier, take his medicines and follow with his PCP, will give antibiotics for Omnicef and Azithromycin on discharge, blood cultures negative, inhaler on discharge. not yet seen by client retention specialist will follow recommendations for discharge. 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 Assessment and Plan 1. Pneumonia, as per CTA showed peripheral interstitial opacities, Fever at home and on arrival to ER, No leukocytosis no lactic acidosis, continue Rocephin and Azithromycin, Legionella antigen and Pneumococcal antigen. blood culture negative, CXR showing vascular congestion, will switch to Cefdinir and Azithromycin on discharge. 2. Acute Heart failure with preserved Ejection Fraction Echocardiogram showing EF 55-60%, Patient has bilateral pleural effusions, BNP 752, crackles on admission, at this time stable, improving general condition but failed walk test. 3. Encephalopathy Improved. probable metabolic at this time his MRA and MRI brain within normal limits no pathology found. 4. Urinary Incontinence has Urology specialist following as outpatient 5. CKD III at baseline and improving. 6. History of DVT on Warfarin INR 1.8 today. 7. Complete heart block status post Pacemaker placement last interrogation one week ago. Cardiology to follow. 8. Hypertension controlled 9. Hyperlipidemia to continue Home medicines 10. Electrolyte derangement replaced 11. Respiratory insufficiency probable related to recent Cardiac condition having Heart failure with preserved Ejection fraction as acute, failed walk test will go home on Oxygen 2L/min Seen in his bedroom in the presence of his Nurse Mr. Gutierrez try to discharge home but not yet seen by Cardiology okay to discharge from client retention specialist standpoint. DVT prophylaxis with Warfarin therapeutic at this time. Discharge Planning Discharge Home on C. Pt Condition on Discharge: Good Discharge Disposition: Disch w/ Home Health Serv Discharge Time: > 30 minutes Discharge Instructions DIET: Follow Instructions for: Heart Healthy Diet Activities you can perform: Regular-No Restrictions Wilber Brantley MD Feb 26, 2017 09:06
[2017-02-26] MEDS ORDERED: WARFARIN SOD 1 MG TAB PO ONE (16:00)
[2017-02-26] MEDS: WARFARIN SOD 7.5 MG TAB PO SCH (16:09)
[2017-02-26] MEDS: ATORVASTATIN 10 MG TAB PO SCH (21:28)
[2017-02-27] MEDS: AZITHROMYCIN INJ 500 MG in SODIUM CHLOR 0.9% 250 ML INJ 250 ML IV SCH (02:55)
[2017-02-27 04:10] VITALS: BP 118/72; PULSE 60; RESP 18; TEMP 97.6; O2SAT 95
[2017-02-27] MEDS: CEFEPIME INJ 1,000 MG in SODIUM CHLORIDE 0.9% INJ 100 ML IV SCH (04:33)
[2017-02-27 06:46] LABS: INTERNATIONAL NORMALIZED RATIO 2.3 RATIO; PROTHROMBIN TIME - PATIENT 23.4 SEC (9.8-11.6)
[2017-02-27 08:00] VITALS: BP 138/81; PULSE 60; RESP 18; TEMP 97.2; O2SAT 98
[2017-02-27] MEDS: ASPIRIN EC 81 MG TABEC PO SCH (09:00)
[2017-02-27] MEDS: TOLTERODINE TARTRATE 4 MG CAP LA PO SCH (09:08)
[2017-02-27] MEDS: FUROSEMIDE 40 MG TAB PO SCH (09:08)
[2017-02-27] MEDS: TAMSULOSIN HCL 0.4 MG CAP PO SCH (09:08)
[2017-02-27] MEDS: FINASTERIDE 5 MG TAB PO SCH (09:08)
[2017-02-27] MEDS: CHOLECALCIFEROL (VIT D3) 1000 UNIT TAB PO SCH (09:08)
[2017-02-27] MEDS: MAGNESIUM OXIDE 400 MG TAB PO SCH (09:08)
[2017-02-27] MEDS: SODIUM CHLORIDE 0.9% FLUSH 10 ML FLUSH IV FLUSH SCH (09:15)
[2017-02-27 11:01] VITALS: O2SAT 98
[2017-02-27 12:00] VITALS: BP 131/80; PULSE 60; RESP 18; TEMP 97.8; O2SAT 98
== END 2017-02-27 13:57 | disposition home health service (06) | DRG 193 ==
LOC: NEPC 20:54 → NEDA 02-23 01:01 → N06B 02-23 02:32
PROVIDERS: ADMIT Internal Medicine; ATTEND Internal Medicine
DX: J18.9 Pneumonia, unspecified organism (principal); G93.41 Metabolic encephalopathy; I44.2 Atrioventricular block, complete; I95.9 Hypotension, unspecified; N18.3 Chronic kidney disease, stage 3 (moderate); I13.0 Hypertensive heart and chronic kidney disease with heart failure and stage 1 through stage 4 chronic kidney disease, or unspecified chronic kidney disease; D69.6 Thrombocytopenia, unspecified; N39.0 Urinary tract infection, site not specified; R32 Unspecified urinary incontinence; E78.5 Hyperlipidemia, unspecified; I50.9 Heart failure, unspecified; R59.0 Localized enlarged lymph nodes; I87.2 Venous insufficiency (chronic) (peripheral); M19.90 Unspecified osteoarthritis, unspecified site; N40.0 Benign prostatic hyperplasia without lower urinary tract symptoms; Z79.01 Long term (current) use of anticoagulants; Z91.19 Patient's noncompliance with other medical treatment and regimen; Z95.0 Presence of cardiac pacemaker; Z86.718 Personal history of other venous thrombosis and embolism; Z86.73 Personal history of transient ischemic attack (TIA), and cerebral infarction without residual deficits; Z87.891 Personal history of nicotine dependence; R53.1 Weakness; R94.31 Abnormal electrocardiogram [ECG] [EKG]; M89.9 Disorder of bone, unspecified
CPT/HCPCS: 70450; 70544; 70551; 71010; 71020; 71275; 76937; 80048; 80053; 81001; 82306; 82550; 82552; 82607; 82948; 83605; 83690; 83735; 83880; 84100; 84443; 84484; 85025; 85610; 85730; 86140; 87040; 87804; 93005; 93306; 94620; 94640; 94664; 96361; 96365; 96368; 96372; G0378; G9168-GN; G9169-GN; G9170-GN; J0456; J0692; J0696; J1644; J1940; J2543; J3370; J3420; J7030; J7050; Q9967